=== PATIENT | male | born 1980 | race Two or more races ===

== ENCOUNTER 2024-08-06 17:14 | Emergency (ER) | payer MEDICAID, SELFPAY ==
[2024-08-06 17:41] VITALS: BP 165/95; PULSE 100; RESP 18; TEMP 37.2; O2SAT 95; BMI 27.0
--- NOTE | 2024-08-06 17:43 | XR_ITS ---
Examination: CT abdomen and pelvis without contrast. Coronal 3-D reconstructions. Sagittal 2-D reconstructions. Date and time of exam:August 06, 2024, [address] chest abdomen pelvis June 14, 2020 INDICATIONS: Epigastric pain nausea vomiting diarrhea beginning one week ago CTDI: vol (mGy): 7.40 DLP: (mGycm): 438 Technique: Axial images of the abdomen have been obtained, 3 mm slice thickness Intravenous contrast material has not been administered. Low dose protocols were performed. One or more of the following dose reduction techniques were used; automated exposure control, adjustment of the mA and/or KV according to patient size, use of iterative reconstruction technique. Findings: Severe diffuse fatty infiltration throughout the liver Mildly hyperdense gallbladder Spleen not enlarged No pancreatic or adrenal mass No renal or ureteral calculi, mild right perinephric stranding Aorta normal size Normal appendix No bowel obstruction No diverticulitis Normal seminal vesicles No prostatomegaly Prominent urinary bladder wall thickening up to 9 mm Advanced degenerative disc disease L5-S1 with 4 mm right paracentral disc bulge displacing the right S1 nerve root IMPRESSION: Severe diffuse fatty infiltration throughout the liver. Hyperdense gallbladder, recommend hepatobiliary sonography follow-up Mild right perinephric stranding, significant thickening of the urinary bladder wall, consider right urinary tract infection cystitis
--- NOTE | 2024-08-06 17:43 | PD.EDRME ---
Rapid Medical Screening Exam RME Arrival date/time: 08/06/24 17:14 43-year-old male with a history of alcoholism presents to the emergency room with a chief complaint of a decreased appetite, headache, fatigue x 3 days I have greeted and performed a focused initial assessment of this patient. A comprehensive ED assessment and evaluation of the patient, analysis of all test results, and completion of the medical decision making process will be conducted by additional ED providers. Chief Complaint: Nausea/Vomiting/Diarrhea Time Seen by Provider: 08/06/24 17:18 Vital signs: Vital Signs Temperature 99.0 F 08/06/24 17:41 Pulse Rate 100 08/06/24 17:41 Respiratory Rate 18 08/06/24 17:41 Blood Pressure 165/95 H 08/06/24 17:41 Pulse Oximetry (%) 95 08/06/24 17:41 Vital signs reviewed by provider: Yes
[2024-08-06 18:32] LABS: Basophils # (Auto) 0.1 Thou/mm3 (0.0-0.2); Basophils % (Auto) 3 % (0-2.5); Eosinophils # (Auto) 0.1 Thou/mm3 (0.0-0.5); Eosinophils % (Auto) 1 % (0-10); Hematocrit 38.6 % (41.0-53.0); Hemoglobin 13.8 g/dL (13.5-16.0); Immature Granulocytes % (Auto) 0 % (0-0); Immature Granulocytes Auto 0.01 Thou/mm3 (0.00-0.00); Lymphocytes # (Auto) 0.8 Thou/mm3 (1.0-4.8); Lymphocytes % (Auto) 19 % (10-50); Mean Corpuscular HGB Conc 35.8 g/dl (31.0-37.0); Mean Corpuscular Hemoglobin 29.3 pg (25.0-35.0); Mean Corpuscular Volume 82 fL (80-100); Monocytes # (Auto) 0.6 Thou/mm3 (0.0-0.8); Monocytes % (Auto) 15 % (0-12); Neutrophils # (Auto) 2.5 Thou/mm3 (1.8-7.7); Neutrophils % (Auto) 62 % (37-80); Nucleated Red Blood Cell % 0 /100 WBC (0); Platelet Count 126 Thou/mm3 (140-440); RDW Standard Deviation 40.1 fL (35.1-43.9); Red Blood Count 4.71 Miln/mm3 (4.50-5.90); White Blood Count 4.1 Thou/mm3 (3.8-10.6)
[2024-08-06 18:57] LABS: Collection Type, Urine Clean Catch; Squamous Epithelial Cell,Urine 0 /hpf (0-5)
[2024-08-06 18:58] LABS: Alanine Aminotransferase 164 U/L (10-49); Albumin, Serum 4.8 gm/dL (3.5-5.0); Albumin/Globulin Ratio 1.4 (1.2-2.2); Alcohol, Blood Medical 207.8 mg/dL (0-10.0); Alkaline Phosphatase 123 U/L (46-116); Anion Gap 14 (7-16); Aspartate Amino Transferase 253 U/L (0-34); BUN/Creatinine Ratio 6 Ratio (12-20); Bilirubin,Total 1.3 mg/dL (0.3-1.2); Blood Urea Nitrogen < 5 mg/dL (9-23); Calcium 10.2 mg/dL (8.3-10.6); Calcium (Corrected) 10.2 mg/dL (8.5-10.1); Carbon Dioxide 32.8 mMol/L (20.0-31.0); Chloride 77 mMol/L (98-107); Creatinine (Component) 0.9 mg/dL (0.6-1.3); Estimated Creatinine Clearance 104.7 mL/min (>60); Globulin 3.4 gm/dL (2.3-3.5); Glucose 95 mg/dL (74-106); Lipase 64 U/L (12-53); Osmolality,Calculated 246 (275-295); Potassium 3.2 mMol/L (3.4-5.1); Sodium 124 mMol/L (136-145); Total Protein 8.2 gm/dL (5.7-8.2); eGFR > 60 See Note
[2024-08-06 19:09] LABS: Bilirubin,Urine Negative (Negative); Blood,Urine Negative (Negative); Clarity,Urine Clear (Clear/Hazy); Color,Urine Yellow (Lt Yel-Yel); Glucose, Urine Negative (Negative); Hyaline Casts,Urine < 1 /hpf (0-1); Ketones,Urine 1+ (Negative); Leukocyte Esterase,Urine Negative (Negative); Nitrite,Urine Negative (Negative); PH,Urine 6.5 (5.0-7.0); Protein,Urine Trace (Neg - Trace); RBC,Urine 2 /hpf (0-3); Specific Gravity,Urine 1.016 (1.001-1.035); Urobilinogen,Urine Negative mg/dL (0.0-1.0); WBC,Urine 1 /hpf (0-5)
[2024-08-06 20:02] LABS: Amphetamine/Methamp Scrn,U Negative (Negative); Barbiturate Screen,Urine Negative (Negative); Benzodiazepines Screen,Urine Negative (Negative); Benzoylecgonine Screen, Ur Negative (Negative); Fentanyl Screen,Urine Negative (Negative); Opiate Screen,Urine Negative (Negative); THC Screen,Urine Positive (Negative)
[2024-08-06 20:56] VITALS: BP 149/98; PULSE 100; RESP 19; TEMP 37.2; O2SAT 97
--- NOTE | 2024-08-06 22:54 | EDNOTE_ITS ---
Nausea/Vomit./Diarrhea-RME/HPI General Chief complaint: Nausea/Vomiting/Diarrhea Stated complaint: UNABLE TO EAT, VOMITING, DIARRHEA, HEAD/NECK PAIN Time Seen by Provider: 08/06/24 17:18 Arrival date/time: 08/06/24 17:14 RME / HPI RME / HPI Narrative: 08/06/24 17:14 43-year-old male with a history of alcoholism presents to the emergency room with a chief complaint of a decreased appetite, headache, fatigue x 3 days I have greeted and performed a focused initial assessment of this patient. A comprehensive ED assessment and evaluation of the patient, analysis of all test results, and completion of the medical decision making process will be conducted by additional ED providers. This section includes all my notes and documentations, including HPI, PE, and ED course. Williams Badillo MD HPI: 43 y/o male with Hx of Alcoholism, marijuana use, Seizures, Asthma, Gastrointestinal Bleed, Esophageal Varices, and Ulcer presents to ED c/o nausea, vomiting, headache, abdominal pain, and anorexia x 6 days. No other complaints. ROS: All negative except as documented in HPI. Physical Exam: General: Alert and oriented. Eyes: Conjunctivae and lids clear. ENT: No nasal congestion. Neck: Supple. Heart: RRR. Lungs: No respiratory distress. Good air movement. No rhonchi, wheezing, rales. Abdomen: Soft with epigastric and RUQ tenderness. Normal bowel sounds. No distension. No rebound or guarding. Back: No CVA tenderness. Skin: Warm and dry. Neuro: Alert and oriented X 3. I reviewed all diagnostic test results. My interpretation of the EKG is sinus rhythm with no acute ST?T changes. My review of the US report is gallbladder sludge. My review of the Abdomen/Pelvis CT report is no acute findings. My review of the Head/Brain CT report is NAD. My review of the C-Spine CT report is no acute fracture. My review of the T-Spine CT report is no acute fracture. My review of the L-Spine CT report is no acute fracture. Blood tests and urine tests unremarkable except LFT elevation in serum alcohol 207. At this point, diagnoses include Alcohol Intoxication, Gall Bladder Sludge, Stomach Ulcer. Treatment here included Pepcid, IV fluid, thiamine, Protonix, Zofran, Toradol, Ativan, IV fluid, Potassium Chloride. Significant improvement noted. Recommended more outpatient care. Based on my best medical judgment, made decision no further evaluation or treatment indicated at this time. Patient understands and agrees to the discharge instructions customized and printed, see below. Discharge Instructions from Dr. Badillo: 1. After extensive evaluation, your diagnoses include alcohol intoxication and stomach ulcer and gallbladder sludge. See attached handouts. 2. You need gallbladder to digest fatty food. So avoid alcohol and all fatty and oily and greasy and buttery and dairy foods.? 3. Zofran for nausea/vomiting.? Clear liquid diet for 24 hours. Then advance diet as tolerated. 4. To heal your stomach ulcer, take omeprazole every morning and famotidine every night for a month. Avoid alcohol to prevent worsening. 5. Take multivitamin and folic acid 1 mg and thiamine 50 mg every day. 6.. See a private doctor on 08/08/2024 for recheck and further care. Ask to review all test results and official radiology reports, to make sure you receive all necessary follow-ups and monitoring. Ask for help seeing a general surgeon to discuss elective surgery of your gallbl adder. To make sure there is no serious intra-abdominal condition, ask for help with more investigation not available here in the ER. Such as EGD or scoping the stomach, colonoscopy or scoping the colon, and referral to see outside sales manager. Ask for help to quit alcohol. 7. Seek immediate medical care with intolerable pain, fever, or with any concerns. Williams Badillo MD Related Data Home Medications ?Medication ?Instructions ?Recorded ?Confirmed ferrous sulfate 325 mg (65 mg 1 tab PO QDAY 08/26/21 0 08/26/21 iron) tablet (FeroSul) pantoprazole 40 mg tablet,delayed 1 tab PO QDAY 08/26/21 release Previous Rx's ?Medication ?Instructions ?Recorded famotidine 40 mg tablet 40 mg PO .bedtime #30 tabs 0 08/07/24 omeprazole 40 mg capsule,delayed 40 mg PO QDAY #30 cap s 08/07/24 release ondansetron 4 mg disintegrating 4 mg PO TID PRN nausea and 08/07/24 tablet vomiting 30 days #10 tabs Allergies Allergy/AdvReac Type Severity Reaction Status Date / Time No Known Allergies Allergy Verified 08/06/24 17:19 Review of Systems Review of Systems Systems Reviewed: All systems reviewed, normal except as documented Past Medical History Past Medical History NEUROLOGIC: Positive Seizures RESPIRATORY: Positive Asthma GASTROINTESTINAL: Positive Gastrointestinal Disorders, Gastrointestinal Bleed, Esophageal Varices and Ulcer PSYCHO/SOCIAL: Positive Anxiety OTHER HISTORY: Positive Blood Transfusions and Blood Transfusion Reaction Social History SUBSTANCE USE: marijuana ALCOHOL: Current ALCOHOL FREQUENCY: 3 or More Drinks per Day ED Exam Narrative Physical exam: Refer to HPI above Course Quality Measures none Orders Category Date Time Status CT Screening NOW Care 08/07/24 00:40 Active EKG (ED ONLY) *Do not use* NOW Care 08/06/24 23:02 Completed Saline [Insert IV] NOW Care 08/06/24 22:[address] abdomen pelvis wo con Stat Exams 08/06/24 17:[address] cervical spine wo con Stat Exams 08/07/24 00:[address] chest abdomen pelvis w Stat Exams 08/07/24 00:[address] head/brain wo con Stat Exams 08/07/24 00:[address] lumbar spine wo con Stat Exams 08/07/24 00:[address] thoracic spine wo con Stat Exams 08/07/24 00:40 Taken EKG (ED Only) Stat Exams 08/06/24 23:02 Draft US gall bladder Stat Exams 08/06/24 23:02 Completed ABG [Arterial Blood Gas] Stat Lab 08/06/24 23:21 Completed Alcohol, Blood Medical Stat Lab 08/06/24 18:08 Completed Ammonia Stat Lab 08/06/24 23:20 Completed Amylase Stat Lab 08/06/24 23:20 Completed BMP [Basic Metabolic Panel] Stat Lab 08/07/24 01:39 Completed BNP [B-Type Natriuretic Peptide] Stat Lab 08/06/24 23:20 Completed Bilirubin,Direct Stat Lab 08/06/24 23:20 Completed CBC Stat Lab 08/06/24 18:08 Completed CBC Stat Lab 08/07/24 01:39 Completed CMP [Comprehensive Metabolic Panel] Stat Lab 08/06/24 18:08 Completed Drug Screen,Urine Stat Lab 08/06/24 18:46 Completed Free T4 (Free Thyroxine) Stat Lab 08/06/24 23:20 Completed Lipase Stat Lab 08/06/24 18:08 Completed Magnesium Stat Lab 08/06/24 23:20 Completed Occult Blood, Gastric (LAB) Stat Lab 08/07/24 00:25 Completed PT [Prothrombin Time with INR] Stat Lab 08/06/24 23:20 Completed PTT [Partial Thromboplastin Time] Stat Lab 08/06/24 23:20 Completed TSH [Thyroid Stimulating Hormone] Stat Lab 08/06/24 23:20 Completed Troponin I Stat Lab 08/06/24 23:20 Completed UA [Urinalysis] Stat Lab 08/06/24 18:46 Completed Urine Culture Stat Lab 08/06/24 18:46 Received Famotidine Inj [Pepcid Inj] Med 08/06/24 22:56 Discontinued 20 mg IVP X1 ONE KCL 10% Liq UDC 15 ML Med 08/07/24 00:39 Discontinued 40 meq PO X1 ONE Ketorolac Inj [Toradol Inj] Med 08/06/24 22:55 Discontinued 30 mg IVP X1 ONE LORazepam [Ativan Inj] Med 08/06/24 22:55 Discontinued 2 mg IVP X1 ONE Ondansetron Inj [Zofran Inj] Med 08/06/24 22:55 Discontinued 4 mg IVP X1 ONE Pantoprazole Inj [Protonix Inj] Med 08/06/24 22:56 Discontinued 40 mg IVP X1 ONE Ringers Lactated 1000 ml [Lactated Ringers] 1,000 ml Med 08/07/24 00:41 Discontinued IV 1,000 mls/hr Sodium Chloride 0.9% 1000 ml [Ns] 1,000 ml Med 08/06/24 22:55 Discontinued IV 999 mls/hr Sodium Chloride 0.9% 1000 ml [Ns] 1,000 ml Med 08/06/24 22:56 Discontinued IV 999 mls/hr Thiamine Inj [Vitamin B-1 Inj] 100 mg Med 08/06/24 22:55 Discontinued Sodium Chloride 0.9% [Ns] 100 ml IV X1 Vital Signs Vital signs: Vital Signs Temperature 99.0 F 08/06/24 17:41 Pulse Rate 100 08/06/24 17:41 Respiratory Rate 18 08/06/24 17:41 Blood Pressure 165/95 H 08/06/24 17:41 Pulse Oximetry (%) 95 08/06/24 17:41 Nausea/Vomiting/Diarrhea MDM Narrative MDM Narrative:: Scribe Attestation: I, Ade Wyatt, am scribing for and in the presence of Dr. Badillo. Provider Notation: Although this document has been carefully reviewed, there may still be some phonetic and other typographical errors.? These errors are purely grammatical due to imperfections in the software program and should not be construed in any way to? compromise the substance of the patient's medical care during this visit. 43 y/o male with Hx of Alcoholism, marijuana use, Seizures, Asthma, Gastrointestinal Bleed, Esophageal Varices, and Ulcer presents to ED c/o nausea, vomiting, headache, and anorexia x 6 days. Several years ago patient went 7 months with consuming alcohol. No other complaints. Patient data External records reviewed:: [facility] previous records (Reviewed prior ED records from 04/26/23. Patient was seen for Ankle sprain.) Clinical information provided by:: patient Social determinants that could affect healthcare access:: alcohol use (& Marijuana) Patient has the following chronic illnesses:: Seizures, Asthma, Gastrointestinal Bleed, Esophageal Varices, Ulcer, Anxiety, Alcoholism How is presenting disease/condition affected by chronic disease/condition?: exacerbated by Evaluation data The following diagnostics were reviewed and interpreted by me:: lab results, radiology exam(s) and EKG tracing(s) (My interpretation of the EKG is: Sinus rhythm (108 bpm) with nonspecific ST-T changes. Williams Badillo MD) Lab and/or radiology exams considered but not ordered:: None Interpretation Summary: I reviewed all diagnostic test results. My interpretation of the EKG is sinus rhythm with no acute ST?T changes. My review of the US report is gallbladder sludge. My review of the Abdomen/Pelvis CT report is no acute findings. My review of the Head/Brain CT report is NAD. My review of the C-Spine CT report is no acute fracture. My review of the T-Spine CT report is no acute fracture. My review of the L-Spine CT report is no acute fracture. Blood tests and urine tests unremarkable except LFT elevation in serum alcohol 207. Medications / Prescriptions Medications / Prescriptions considered but not ordered:: None Medication administrations:: Medication Administration History Discontinued Medications Famotidine (Famotidine Inj 10 Mg/Ml Vial 2 Ml) 20 mg IVP X1 ONE Stop: 08/06/24 22:57 Last Admin: 08/06/24 23:31 Dose: 20 mg Documented By: WO Sodium Chloride (Ns) 1,000 mls @ 999 mls/hr IV .Q1H1M ONE Stop: 08/06/24 23:55 Last Infusion: 08/07/24 00:32 Dose: Infused Documented By: Admin: 08/06/24 23:24 Dose: 999 mls/hr Documented By: ANNELIESE Thiamine HCl 100 mg/ Sodium (Chloride) 101 mls @ 202 mls/hr IV X1 ONE Stop: 08/06/24 23:24 Last Infusion: 08/07/24 00:11 Dose: Infused Documented By: Admin: 08/06/24 23:41 Dose: 202 mls/hr Documented By: WO Sodium Chloride (Ns) 1,000 mls @ 999 mls/hr IV .Q1H1M ONE Stop: 08/06/24 23:56 Last Admin: 08/06/24 23:27 Dose: Not Given Documented By: ANNELIESE Non-Admin Reason: Discontinued Lactated Ringer's (Lactated Ringers) 1,000 mls @ 1,000 mls/hr IV .Q1H ONE Stop: 08/07/24 01:40 Last Infusion: 08/07/24 01:49 Dose: Infused Documented By: Admin: 08/07/24 00:50 Dose: 1,000 mls/hr Documented By: GATITO Ketorolac Tromethamine (Ketorolac Inj 30 Mg/Ml Vial) 30 mg IVP X1 ONE Stop: 08/06/24 22:56 Last Admin: 08/06/24 23:34 Dose: 30 mg Documented By: ANNELIESE Lorazepam (Lorazepam 2 Mg/Ml Vial) 2 mg IVP X1 ONE Stop: 08/06/24 22:56 Last Admin: 08/06/24 23:33 Dose: 2 mg Documented By: ANNELIESE Ondansetron HCl (Ondansetron Inj 2 Mg/Ml Inj 2 Ml) 4 mg IVP X1 ONE; Protocol Stop: 08/06/24 22:56 Last Admin: 08/06/24 23:32 Dose: 4 mg Documented By: ANNELIESE Pantoprazole Sodium (Pantoprazole Inj 40 Mg Vial) 40 mg IVP X1 ONE Stop: 08/06/24 22:57 Last Admin: 08/06/24 23:30 Dose: 40 mg Documented By: ANNELIESE Potassium Chloride (Potassium Chloride 10% 20 Meq/15 Ml Udc) 40 meq PO X1 ONE Stop: 08/07/24 00:40 Last Admin: 08/07/24 00:59 Dose: 40 meq Documented By: CVL Treatment here included Pepcid, IV fluid, thiamine, Protonix, Zofran, Toradol, Ativan, IV fluid, Potassium Chloride. Consultations Consultation(s) initiated? (list below): No Diagnosis Nausea Differential Diagnosis: traveler's diarrhea, food poisoning, gastroenteritis, drug-induced nausea and vomiting, dehydration and other (GERD, gastritis, PUD) Most likely diagnosis given after review of the tests above:: Alcohol intoxication, Gall Bladder Sludge, Stomach Ulcer Admission Indicated Admission indicated?: not indicated Explain why admission is indicated or not indicated:: With significant improvement, there was no indication for admission. Admission Request Was there a request for admission?: No Disposition Plan Disposition Plan: Discharge Discharge Attestation Discharge Attestation: The patient and all family members were given an opportunity to ask questions and understood the discharge instructions. Discharge instructions specifically effects, indications for sooner follow up or return to the emergency department, and the expected course of current diagnosis. Patient condition: Stable Discharge Plan Plan Patient Disposition: HOME (Self Care) Prescriptions/Referrals Prescriptions/Med Rec: New famotidine 40 mg tablet 40 mg PO .bedtime Qty: 30 0RF omeprazole 40 mg capsule,delayed release(DR/EC) 40 mg PO QDAY Qty: 30 0RF ondansetron 4 mg tablet,disintegrating 4 mg PO TID PRN (Reason: nausea and vomiting) 30 Days Qty: 10 0RF No Action pantoprazole 40 mg tablet,delayed release (DR/EC) 1 tab PO QDAY Patient Comments: TAKE 1 TABLET BY MOUTH EVERY DAY ferrous sulfate [FeroSul] 325 mg (65 mg iron) tablet 1 tab PO QDAY Patient Comments: TAKE 1 TABLET BY MOUTH DAILY. MAY. TAKE WITH FOOD TO MINIMIZE ABDOMINAL DISCOMFORT Referrals: No Primary/Family,Physician [Primary Care Provider] - In 1 week Problem List Clinical Impression: Alcohol intoxication, Gallbladder sludge, Stomach ulcer Patient/Caregiver Discharge Instructions Discharge Activity: activity as tolerated Education Materials: ED Alcohol Intoxication, ED Gallstones with Biliary Colic, ED PEPTIC ULCER vs GASTRITIS Additional Instructions: Discharge Instructions from Dr. Badillo: 1. After extensive evaluation, your diagnoses include alcohol intoxication and stomach ulcer and gallbladder sludge. See attached handouts. 2. You need gallbladder to digest fatty food. So avoid alcohol and all fatty and oily and greasy and buttery and dairy foods.? 3. Zofran for nausea/vomiting.? Clear liquid diet for 24 hours. Then advance diet as tolerated. 4. To heal your stomach ulcer, take omeprazole every morning and famotidine every night for a month. Avoid alcohol to prevent worsening. 5. Take multivitamin and folic acid 1 mg and thiamine 50 mg every day. 6.. See a private doctor on 08/08/2024 for recheck and further care. Ask to review all test results and official radiology reports, to make sure you receive all necessary follow-ups and monitoring. Ask for help seeing a general surgeon to discuss elective surgery of your gallbladder. To make sure there is no serious intra-abdominal condition, ask for help with more investigation not available here in the ER. Such as EGD or scoping the stomach, colonoscopy or scoping the colon, and referral to see outside sales manager. Ask for help to quit alcohol. 7. Seek immediate medical care with intolerable pain, fever, or with any concerns. Instrucciones de jose del Dr. Badillo: 1. Tras lili evaluaci?n exhaustiva, amaya diagn?sticos incluyen intoxicaci?n et?lica, ?lcera estomacal y lodo biliar. Consulte los folletos adjuntos. 2. Necesita la ves?cula biliar para digerir los alimentos grasos. Por lo tanto, evite el alcohol y todos los alimentos grasosos, aceitosos, mantecosos y l?cteos. 3. Zofran para las n?useas y los v?mitos. Dieta l?quida raj 24 horas. Luego, aumente la dieta seg?n la tolerancia. 4. Para curar la ?lcera estomacal, tome omeprazol todas las ma?anas y famotidina todas las noches raj un mes. Evite el alcohol para prevenir el empeoramiento. 5. [place] un multivitam?madhu y 1 mg de ?cido f?becca y 50 mg de tiamina todos los d?as. 6. Consulte con un m?dico particular el 08/08/2024 para lili revisi?n y atenci?n adicional. Solicite la revisi?n de todos los resultados de las pruebas y los informes radiol?gicos oficiales para asegurarse de recibir todos los controles y monitoreos necesarios. Solicite ayuda para consultar con un cirujano general y hablar sobre lili cirug?a electiva de ves?cula biliar. Para asegurarse de que no haya lili afecci?n intraabdominal grave, solicite ayuda con estudios adicionales que no est?n disponibles en urgencias, fransisco lili endoscopia estomacal (EGD) o lili colonoscopia, lili colonoscopia o lili colonoscopia, y lili derivaci?n a un gastroenter?logo. Solicite ayuda para dejar el alcohol. 7. Busque atenci?n m?dica inmediata si presenta dolor insoportable, fiebre o cualquier inquietud. Print Language: Syriac Stand Alone Forms: Amanda Award Info., Patient Portal Info Letter
--- NOTE | 2024-08-06 23:02 | XR_ITS ---
Examination: Abdomen sonogram, Limited Date and time of exam: July 29, 2024 1122 hours INDICATIONS: Right upper abdominal pain today, hyperdense gallbladder on CT examination today Technique: Real-time [place] scale transabdominal sonographic images of the upper abdomen obtained. Findings: Gallbladder sludge Gallbladder wall 0.3 cm Common bile duct 0.4 cm Pancreatic head 3.4 cm Liver 16.8 cm fatty infiltration Normal hepatopedal portal venous flow Patent IVC IMPRESSION: Gallbladder sludge, negative for cholelithiasis, negative for cholecystitis Mild hepatomegaly fatty liver
--- NOTE | 2024-08-06 23:02 | EKG_ITS ---
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
[2024-08-06] MEDS: SODIUM CHLORIDE 0.9% 1000 ML 1,000 ML 999 ML IV (23:24)
[2024-08-06] MEDS: PANTOPRAZOLE INJ 40 MG VIAL IVP (23:30)
[2024-08-06] MEDS: FAMOTIDINE INJ 10 MG/ML VIAL 2 ML 20 MG IVP (23:31)
[2024-08-06] MEDS: ONDANSETRON INJ 2 MG/ML INJ 2 ML 4 MG IVP (23:32)
[2024-08-06] MEDS: LORazepam 2 MG/ML VIAL IVP (23:33)
[2024-08-06 23:34] VITALS: TEMP 37.2
[2024-08-06] MEDS: KETOROLAC INJ 30 MG/ML VIAL IVP (23:34)
[2024-08-06 23:36] LABS: Allen Test Performed/OK; Base Excess 10 (-3-3); HCO3 34 mEq/L (20-26); Inspired Oxygen, FIO2 21 %; O2 Saturation 96 % (91-98); PCO2 44 mmHg (32.0-48.0); PO2 77 mmHg (83-108); Puncture Site Right Radial
[2024-08-06] MEDS: THIAMINE INJ 100 MG in SODIUM CHLORIDE 0.9% 100 ML 202 MG IV (23:41)
[2024-08-06 23:53] VITALS: BP 156/99; PULSE 81; RESP 12; TEMP 36.7; O2SAT 93
[2024-08-07 00:02] LABS: B-Type Natriuretic Peptide < 20 pg/mL (0-100)
[2024-08-07 00:03] LABS: Ammonia 17 uMol/L (11-32)
[2024-08-07 00:07] LABS: Amylase 78 U/L (30-118); Bilirubin,Direct 0.6 mg/dL (0.0-0.3); Free T4 (Free Thyroxine) 1.42 ng/dL (0.89-1.76); Magnesium 1.9 mg/dL (1.6-2.6); Thyroid Stimulating Hormone 3.15 uIU/mL (0.55-4.78); Troponin I < 0.002 ng/mL (0.0-0.045)
[2024-08-07 00:20] LABS: Partial Thromboplastin Time 26.4 Seconds (22.0-36.0); Prothrombin Time 11.2 Seconds (9.0-12.2)
[2024-08-07 00:31] LABS: OBG Card Lot # 20632; OBG Developer Expiration Date 75023G; OBG Performed By Orpiw2; OBG QC OK? Yes
[2024-08-07 00:37] LABS: Occult Blood, Gastric Positive (Negative)
--- NOTE | 2024-08-07 00:40 | XR_ITS ---
Examination: CT chest with intravenous contrast CT abdomen with intravenous contrast CT pelvis with intravenous contrast 2-D coronal and sagittal reconstructions Time of exam: August 07, 2024 0226 hours INDICATIONS: Patient fell today with injury to the chest and abdomen, chest pain abdomen pain CTDI: vol (mGy) : 8.34 DLP: (mGycm): 618 Technique: Multiple axial images of the chest, abdomen and pelvis with intravenous contrast, 3.0 mm slice thickness. Images obtained post intravenous injection Isovue 370 60 cc. 2-D sagittal and coronal reconstructions. Low dose protocols were performed. One or more of the following dose reduction techniques were used; automated exposure control, adjustment of the mA and/or KV according to patient size, use of iterative reconstruction technique. Findings: Significant thyromegaly Thoracic aorta pulmonary arteries appear intact on this noncontrast study No hemopericardium No pneumothorax pulmonary contusion or hemothorax Sternal segments thoracic lumbar vertebral bodies intact Multiple old right-sided rib fractures No acute rib fractures Severe diffuse fatty infiltration throughout the liver, no liver splenic or renal laceration Abdominal aorta intact No free blood in the abdomen or pelvis Negative for pneumoperitoneum Minimal urinary bladder wall thickening Hips bones of the pelvis intact IMPRESSION: Significant thyromegaly Negative for hemopericardium pneumothorax pulmonary contusion or hemothorax Severe diffuse fatty infiltration throughout the liver. No abdominal parenchymal laceration. Abdominal aorta intact No free body in the abdomen or pelvis No acute osseous fractures
--- NOTE | 2024-08-07 00:40 | XR_ITS ---
Examination: CT brain head without contrast. 2-D sagittal coronal reconstructions Date and time of exam:August 07, 2024, 0222 hours INDICATIONS: Patient fell today with injury to head, head pain CTDI: vol (mGy):54.9 DLP: (mGycm):1052 Technique: Multiple CT axial sections of the brain have been obtained, 5 mm slice thickness. Contrast has not been administered. 2-D sagittal, coronal reconstructions have been obtained Low dose protocols were performed. One or more of the following dose reduction techniques were used; automated exposure control, adjustment of the mA and/or KV according to patient size, use of iterative reconstruction technique. Findings: No significant ventricular enlargement. Intra-axial or extra-axial hemorrhage density is not seen. No mass effect or midline shift Basal cisterns are not remarkable. Fourth ventricle is midline. Cranial vault intact. Impression: Negative for acute hemorrhage, mass effect or midline shift
--- NOTE | 2024-08-07 00:40 | XR_ITS ---
Examination: CT lumbar spine, without contrast. 2-D sagittal reconstructions. 2-D coronal reconstructions. 3-D reconstructions. Date and time of exam:August 07, 2024 0238 hours INDICATIONS: Patient fell today with injury to lower back, lower back pain CTDI: vol (mGy):26.2 DLP: (mGycm):776 Technique: Multiple 1.25 mm axial sections of the lumbar spine without intravenous contrast have been obtained. 2-D sagittal and coronal reconstructions have been obtained. 3-D reconstructions have been obtained. Low dose protocols were performed. One or more of the following dose reduction techniques were used; automated exposure control, adjustment of the mA and/or KV according to patient size, use of iterative reconstruction technique. Findings: Adequate alignment lumbar vertebral bodies Iyok-cy-wyrsotou diffuse lumbar disc narrowing most prominent L5-S1 No acute lumbar fracture L5-S1 6 mm central lumbar disc bulge contiguous with the right and left S1 nerve roots L4-L5 5 mm central lumbar disc bulge extending to the right intervertebral foramen with mild right L4 ganglionic impression IMPRESSION: No acute lumbar fracture
--- NOTE | 2024-08-07 00:40 | XR_ITS ---
Examination: CT thoracic spine, without contrast. 2-D sagittal reconstructions. 2-D coronal reconstructions. 3-D reconstructions. Date and time of exam:August 07, 2024 at 0238 hours INDICATIONS: Patient fell today with injury to the upper back, upper back pain CTDI: vol (mGy):27.9 DLP: (mGycm):1003 Technique: Multiple 1.25 mm axial sections of the thoracic spine without intravenous contrast have been obtained. 2-D sagittal and coronal reconstructions have been obtained. 3-D reconstructions have been obtained. Low dose protocols were performed. One or more of the following dose reduction techniques were used; automated exposure control, adjustment of the mA and/or KV according to patient size, use of iterative reconstruction technique. Findings: Adequate alignment thoracic vertebral bodies Prominent osteopenia Chronic deformities superior endplates T5, T7, T11, T12 No acute fractures IMPRESSION: No acute thoracic fractures
--- NOTE | 2024-08-07 00:40 | XR_ITS ---
Examination: CT cervical spine without contrast 2-D sagittal reconstructions 2-D coronal reconstructions 3-D reconstructions. Exam date and time:August 07, 2024, 0222 hours INDICATIONS: Patient fell today with injury to the neck, neck pain CTDI:vol (mGy) 10.2 DLP: (mGycm) 230 Technique: Multiple 2 mm axial sections of the cervical spine have been obtained. The coronal and sagittal reconstructions have been obtained. 3-D reconstructions have been obtained. Low dose protocols were performed. One or more of the following dose reduction techniques were used; automated exposure control, adjustment of the mA and/or KV according to patient size, use of iterative reconstruction technique. Findings: Axial sections demonstrate intact base of the skull. C1 exhibit satisfactory relationship to the odontoid. No acute cervical vertebral body fracture seen. Alignment posterior spinous processes satisfactory. Impression: No acute cervical fracture.
[2024-08-07] MEDS: RINGERS LACTATED 1000 ML 1,000 ML IV (00:50)
[2024-08-07] MEDS: POTASSIUM CHLORIDE 10% 20 MEQ/15 ML UDC 40 MEQ PO (00:59)
[2024-08-07 01:53] LABS: Basophils # (Auto) 0.1 Thou/mm3 (0.0-0.2); Basophils % (Auto) 2 % (0-2.5); Eosinophils % (Auto) 2 % (0-10); Hemoglobin 12.8 g/dL (13.5-16.0); Immature Granulocytes % (Auto) 0 % (0-0); Immature Granulocytes Auto 0.01 Thou/mm3 (0.00-0.00); Lymphocytes # (Auto) 0.5 Thou/mm3 (1.0-4.8); Lymphocytes % (Auto) 20 % (10-50); Mean Corpuscular HGB Conc 34.6 g/dl (31.0-37.0); Mean Corpuscular Hemoglobin 29.5 pg (25.0-35.0); Mean Corpuscular Volume 85 fL (80-100); Monocytes # (Auto) 0.4 Thou/mm3 (0.0-0.8); Monocytes % (Auto) 15 % (0-12); Neutrophils # (Auto) 1.6 Thou/mm3 (1.8-7.7); Neutrophils % (Auto) 61 % (37-80); Nucleated Red Blood Cell % 0 /100 WBC (0); Platelet Count 98 Thou/mm3 (140-440); RDW Standard Deviation 42.3 fL (35.1-43.9); Red Blood Count 4.34 Miln/mm3 (4.50-5.90)
[2024-08-07 01:57] LABS: White Blood Count 2.6 Thou/mm3 (3.8-10.6)
[2024-08-07 02:12] LABS: Anion Gap 14 (7-16); BUN/Creatinine Ratio 7 Ratio (12-20); Blood Urea Nitrogen 6 mg/dL (9-23); Calcium 8.3 mg/dL (8.3-10.6); Carbon Dioxide 32.4 mMol/L (20.0-31.0); Chloride 85 mMol/L (98-107); Creatinine (Component) 0.9 mg/dL (0.6-1.3); Estimated Creatinine Clearance 104.7 mL/min (>60); Glucose 85 mg/dL (74-106); Osmolality,Calculated 259 (275-295); Potassium 4.1 mMol/L (3.4-5.1); Sodium 131 mMol/L (136-145); eGFR > 60 See Note
[2024-08-07 02:51] VITALS: BP 175/94; PULSE 87; RESP 19; O2SAT 95
--- NOTE | 2024-08-07 03:07 | PRELIM_ITS ---
CT scan of the head without intravenous contrast (axial sections with sagittal and coronal reformats). August 07, 2024 0222 hours Clinical History: Fall head injury Comparison: None currently available for review Findings: There is mild involutional atrophy of the cerebral hemispheres and cerebellum. There is no intracranial hemorrhage, extra-axial collection, mass, mass-effect or midline shift. There is good montana-white differentiation. There is no CT evidence of acute large vascular territorial infarct. Ventricles are not enlarged or effaced. There is mild paranasal sinus mucosal thickening. The tympanomastoid cavities are clear. The bony calvarium is intact. Impression: No intracranial hemorrhage, mass-effect or midline shift. No CT evidence of acute large vascular territorial infarct. Report Electronically Signed By: Nate Batista 08/07/2024 3:06:46 AM [EST]
--- NOTE | 2024-08-07 03:51 | PRELIM_ITS ---
CT scan of the lumbar spine without intravenous contrast (axial sections with sagittal and coronal reformats) August 07, 2024 0238 hours Clinical History: Fall. Comparison: No prior study is available for comparison. Radiation Dose: Total exam DLP 1786 mGy/cm. Findings: There is no fracture or traumatic subluxation. There are disc bulges at the L4- L5 and L5-S1 levels causing mild spinal canal stenosis and mild bilateral neural foraminal stenosis. Degenerative changes are noted in the form of multilevel marginal osteophytes, decreased disc spaces and facet arthropathy. Pars interarticularis defects are noted at L4 bilaterally. The soft tissues are unremarkable. Impression: No evidence of fracture, subluxation or significant soft tissue injury. Disc bulges at the L4-L5 and L5-S1 levels causing mild spinal canal stenosis and mild bilateral neural foraminal stenosis. Report Electronically Signed By: Fabiano Krishna 08/07/2024 3:51:08 AM [EST]
--- NOTE | 2024-08-07 03:53 | PRELIM_ITS ---
CT scan of the thoracic spine without intravenous contrast (axial sections with sagittal and coronal reformats) August 07, 2024 0238 hours Clinical History: Fall. Comparison: No prior study is available for comparison. Radiation Dose: Total exam DLP 1786 mGy/cm. Findings: There is no fracture or traumatic subluxation. Mild degenerative changes are identified in the spine. Schmorl's nodes are seen along the superior endplate of T5, T7, T11 and T12 vertebrae. There is no pre or paravertebral soft tissue abnormality. Impression: No fracture or traumatic subluxation. Degenerative changes as described above. Report Electronically Signed By: Fabiano Krishna 08/07/2024 3:52:31 AM [EST]
--- NOTE | 2024-08-07 04:05 | PRELIM_ITS ---
CT scan of the chest, abdomen and pelvis with intravenous contrast (axial sections with sagittal and coronal reformats) August 07, 2024 0226 hours Clinical History: Trauma. Comparison: Reference is made to the prior report dated June 14, 2020. Radiation Dose: Total exam DLP 1235 mGy/cm. Findings: Bibasilar dependent atelectasis is present. There is no pleural effusion or pneumothorax. There is no mediastinal collection or aortic injury. There is no pericardial effusion. Fatty infiltration of the liver is noted. Nonspecific perinephric fat stranding is noted bilaterally. The gallbladder, spleen, pancreas, adrenals are unremarkable. The bowel is unremarkable. The urinary bladder is incompletely distended at the time of the examination and appears mildly thick walled. There is no free fluid or free air. No evidence of acute fracture is identified. Degenerative changes are identified in the spine. There are chronic right 4th, 5th, 6th and 9th rib fractures. Impression: No visceral or acute bony injury to the chest, abdomen or pelvis. Other findings as described above. Report Electronically Signed By: Fabiano Krishna 08/07/2024 4:05:24 AM [EST]
--- NOTE | 2024-08-07 04:08 | PRELIM_ITS ---
CT scan of the cervical spine without intravenous contrast (axial sections with sagittal and coronal reformats). August 07, 2024 0222 hours Clinical history: Trauma. Comparison: Reference is made to the prior report dated 06/14/2020. Radiation Dose: Total exam DLP 1295 mGy/cm. Findings: There is no fracture or subluxation. There is straightening of the cervical lordosis, which may be due to muscle spasm or positioning. Degenerative changes are identified in the spine. The prevertebral soft tissues are unremarkable. Both lobes of thyroid are enlarged with calcified nodule in the left lobe of the thyroid, measuring 2 mm. Impression: No evidence of fracture or traumatic subluxation. Degenerative changes as described. Report Electronically Signed By: Fabiano Krishna 08/07/2024 4:07:17 AM [EST]
[2024-08-07 04:39] VITALS: BP 162/107; PULSE 92; RESP 17; O2SAT 95
== END 2024-08-07 04:41 | disposition home or self-care (01) ==
PROVIDERS: Nurse Practitioner Family; Emergency Provider Emergency Medicine
DX: F10.229 Alcohol dependence with intoxication, unspecified (principal); K82.8 Other specified diseases of gallbladder; K25.9 Gastric ulcer, unspecified as acute or chronic, without hemorrhage or perforation; J45.909 Unspecified asthma, uncomplicated; Y90.9 Presence of alcohol in blood, level not specified
CPT/HCPCS: 36415; 36600; 70450; 71260; 72125; 72128; 72131; 74176; 74177; 76705; 80048; 80053; 80307; 80320; 81001; 82140; 82150; 82248; 82271; 82803; 83690; 83735; 83880; 84439; 84443; 84484; 85025; 85610; 85730; 87086; 93005; 96361; 96365; 96375; 99285; A4649; J1885; J2060; J2405; J2470; J3411; J3490; J7030; J7050; J7120; Q9967; A9270; G0480

== ENCOUNTER 2024-09-08 10:00 | Emergency (ER) | payer MEDICAID, SELFPAY ==
[2024-09-08] VITALS (13 sets, daily range): BP systolic 115–162; BP diastolic 73–107; PULSE 65–111; RESP 1–18; TEMP 36.8–37.1; O2SAT 88–100
--- NOTE | 2024-09-08 10:40 | PD.EDRME ---
Rapid Medical Screening Exam RME Arrival date/time: 09/08/24 10:00 Chief Complaint: Seizure Vital signs: Vital Signs Temperature 98.8 F 09/08/24 10:22 Pulse Rate 111 H 09/08/24 10:22 Respiratory Rate 18 09/08/24 10:22 Blood Pressure 154/104 H 09/08/24 10:22 Pulse Oximetry (%) 95 09/08/24 10:22 Oxygen Delivery Method Room Air 09/08/24 10:22 RME Narrative: 43-year-old male presents emergency department with complaint of seizure. Patient has a history of alcohol abuse and states that he has had about 12 cans of beer in the last hour patient says he drank 6 beers before and 6 beers while at work he states he works in the [employer]. Patient was brought here by colleague after seizure-like activity at work. He is unsure of head trauma. Patient appears under the influence of alcohol during my RME. No visible traumatic injury noted.
--- NOTE | 2024-09-08 10:42 | XR_ITS ---
Examination: CT brain head without contrast. 2-D sagittal coronal reconstructions Date and time of exam:September 08, 2024 1048 hours INDICATIONS: Seizure this morning CTDI: vol (mGy):53.4 DLP: (mGycm):1077 Technique: Multiple CT axial sections of the brain have been obtained, 5 mm slice thickness. Contrast has not been administered. 2-D sagittal, coronal reconstructions have been obtained Low dose protocols were performed. One or more of the following dose reduction techniques were used; automated exposure control, adjustment of the mA and/or KV according to patient size, use of iterative reconstruction technique. Findings: No significant ventricular enlargement. Intra-axial or extra-axial hemorrhage density is not seen. No mass effect or midline shift Basal cisterns are not remarkable. Fourth ventricle is midline. Cranial vault intact. Significant ethmoid sinusitis Impression: Negative for acute hemorrhage, mass effect or midline shift Consider elective brain MRI follow-up, pre and postcontrast, seizure protocol
[2024-09-08 11:07] LABS: Basophils # (Auto) 0.1 Thou/mm3 (0.0-0.2); Basophils % (Auto) 3 % (0-2.5); Eosinophils # (Auto) 0.3 Thou/mm3 (0.0-0.5); Eosinophils % (Auto) 9 % (0-10); Hemoglobin 12.8 g/dL (13.5-16.0); Immature Granulocytes % (Auto) 0 % (0-0); Lymphocytes # (Auto) 0.9 Thou/mm3 (1.0-4.8); Lymphocytes % (Auto) 24 % (10-50); Mean Corpuscular HGB Conc 33.7 g/dl (31.0-37.0); Mean Corpuscular Hemoglobin 29.6 pg (25.0-35.0); Mean Corpuscular Volume 88 fL (80-100); Monocytes # (Auto) 0.3 Thou/mm3 (0.0-0.8); Monocytes % (Auto) 9 % (0-12); Neutrophils # (Auto) 1.9 Thou/mm3 (1.8-7.7); Neutrophils % (Auto) 54 % (37-80); Nucleated Red Blood Cell % 0 /100 WBC (0); Platelet Count 178 Thou/mm3 (140-440); RDW Standard Deviation 48.1 fL (35.1-43.9); Red Blood Count 4.32 Miln/mm3 (4.50-5.90); White Blood Count 3.6 Thou/mm3 (3.8-10.6)
[2024-09-08 11:43] LABS: Alanine Aminotransferase 87 U/L (10-49); Albumin, Serum 4.5 gm/dL (3.5-5.0); Albumin/Globulin Ratio 1.5 (1.2-2.2); Alkaline Phosphatase 100 U/L (46-116); Anion Gap 6 (7-16); Aspartate Amino Transferase 120 U/L (0-34); BUN/Creatinine Ratio 7 Ratio (12-20); Bilirubin,Total 0.4 mg/dL (0.3-1.2); Blood Urea Nitrogen < 5 mg/dL (9-23); Calcium 8.7 mg/dL (8.3-10.6); Calcium (Corrected) 8.7 mg/dL (8.5-10.1); Carbon Dioxide 26.9 mMol/L (20.0-31.0); Chloride 106 mMol/L (98-107); Creatinine (Component) 0.7 mg/dL (0.6-1.3); Globulin 3.1 gm/dL (2.3-3.5); Glucose 138 mg/dL (74-106); Lipase 73 U/L (12-53); Osmolality,Calculated 276 (275-295); Sodium 139 mMol/L (136-145); Total Protein 7.6 gm/dL (5.7-8.2); eGFR > 60 See Note
[2024-09-08 12:00] LABS: Alcohol, Blood Medical 448.6 mg/dL (0-10.0)
[2024-09-08] MEDS: ONDANSETRON ODT 4 MG TABRAP PO (12:13)
[2024-09-08] MEDS: FOLIC ACID 1 MG TABLET PO (12:13)
[2024-09-08] MEDS: SODIUM CHLORIDE 0.9% 1000 ML 1,000 ML 999 ML IV (12:14)
[2024-09-08 12:49] LABS: Collection Type, Urine Voided; RBC,Urine 0 /hpf (0-3); Squamous Epithelial Cell,Urine 0 /hpf (0-5); WBC,Urine 0 /hpf (0-5)
[2024-09-08 13:09] LABS: Bilirubin,Urine Negative (Negative); Blood,Urine Negative (Negative); Clarity,Urine Clear (Clear/Hazy); Color,Urine Colorless (Lt Yel-Yel); Glucose, Urine Negative (Negative); Ketones,Urine Negative (Negative); Leukocyte Esterase,Urine Negative (Negative); Nitrite,Urine Negative (Negative); PH,Urine 6.5 (5.0-7.0); Protein,Urine Negative (Neg - Trace); Specific Gravity,Urine 1.004 (1.001-1.035); Urobilinogen,Urine Negative mg/dL (0.0-1.0)
--- NOTE | 2024-09-08 13:54 | EDNOTE_ITS ---
ED Seizures RME/HPI General Chief Complaint: Seizure Stated Complaint: Seizure at 8am, in withdrawl Arrival date/time: 09/08/24 10:00 Limitations: no limitations RME / HPI RME / HPI Narrative: 43-year-old male presents emergency department with complaint of seizure. Patient has a history of alcohol abuse and states that he has had about 12 cans of beer in the last hour patient says he drank 6 beers before and 6 beers while at work he states he works in the [employer]. Patient was brought here by colleague after seizure-like activity at work. He is unsure of head trauma. Patient appears under the influence of alcohol during my RME. No visible traumatic injury noted. DR. EVANS MAIN ED EVALUATION: 43 year old male with history of alcohol abuse presents to the ED for evaluation after reported seizure today. States the seizure was not witnessed and not sure what had occurred or duration of seizure. While in the ED patient reports feeling dizzy. Denies headache, fevers, abdominal pain, n/v, or other associated symptoms. Related Data Home Medications ?Medication ?Instructions ?Recorded ?Confirmed ferrous sulfate 325 mg (65 mg 1 tab PO QDAY 08/26/21 0 08/26/21 iron) tablet (FeroSul) pantoprazole 40 mg tablet,delayed 1 tab PO QDAY 08/26/21 release Previous Rx's ?Medication ?Instructions ?Recorded famotidine 40 mg tablet 40 mg PO .bedtime #30 tabs 0 08/07/24 omeprazole 40 mg capsule,delayed 40 mg PO QDAY #30 cap s 08/07/24 release phenytoin sodium extended 100 mg 100 mg PO TID 30 days #90 caps 09/08/24 capsule (Dilantin Extended) Allergies Allergy/AdvReac Type Severity Reaction Status Date / Time No Known Allergies Allergy Verified 08/06/24 17:19 Review of Systems Review of Systems Systems Reviewed: All systems reviewed, normal except as documented Past Medical History Past Medical History NEUROLOGIC: Positive Seizures RESPIRATORY: Positive Asthma GASTROINTESTINAL: Positive Gastrointestinal Disorders, Gastrointestinal Bleed, Esophageal Varices and Ulcer PSYCHO/SOCIAL: Positive Anxiety OTHER HISTORY: Positive Blood Transfusions and Blood Transfusion Reaction Family History FAMILY HISTORY: Positive Family Gastrointestinal Problems Social History SMOKING STATUS: Never smoker SUBSTANCE USE: marijuana ED Exam General Limitations: Present no limitations General appearance: Present alert and in no apparent distress Head Head exam: Present atraumatic, normocephalic and normal inspection Eye Eye exam: Present normal appearance, PERRL and EOMI ENT ENT exam: Present normal exam, normal oropharynx and mucous membranes moist Neck Neck exam: Present normal inspection, full ROM and trachea midline Chest Chest inspection: Present normal inspection and symmetric chest wall rise Respiratory Respiratory exam: Present normal lung sounds bilaterally Cardiovascular Cardiovascular exam: Present regular rate, normal rhythm and normal heart sounds Abdominal Exam Abdominal exam: Present soft and normal bowel sounds Extremities Exam Extremities exam: Present normal inspection and full ROM Back Exam Back exam: Present normal inspection and full ROM Neurological Exam Neurological exam: Present alert, oriented X3 and CN II-XII intact Psychiatric Psychiatric exam: Present normal affect and normal mood Skin Skin exam: Present warm, dry, intact and normal color Course Quality Measures none Orders Category Date Time Status CT head/brain wo con Stat Exams 09/08/24 10:42 Completed Alcohol, Blood Medical Stat Lab 09/08/24 10:54 Completed CBC Stat Lab 09/08/24 10:54 Completed CMP [Comprehensive Metabolic Panel] Stat Lab 09/08/24 10:54 Completed Lipase Stat Lab 09/08/24 10:54 Completed Urinalysis Stat Lab 09/08/24 12:34 Completed Folic Acid Med 09/08/24 10:42 Discontinued 1 mg PO X1 ONE Ondansetron Odt [Zofran Odt] Med 09/08/24 10:42 Discontinued 4 mg PO X1 ONE Phenytoin Inj [Dilantin Inj] Med 09/08/24 13:52 Discontinued 1,000 mg IV X1 ONE Phenytoin Inj [Dilantin Inj] 1,000 mg Med 09/08/24 14:45 Discontinued Sodium Chloride 0.9% [Ns] 100 ml IV X1 Sodium Chloride 0.9% 1000 ml [Ns] 1,000 ml Med 09/08/24 10:42 Discontinued IV 999 mls/hr Vital Signs Vital signs: Vital Signs Temperature 98.8 F 09/08/24 10:22 Pulse Rate 111 H 09/08/24 10:22 Respiratory Rate 18 09/08/24 10:22 Blood Pressure 154/104 H 09/08/24 10:22 Pulse Oximetry (%) 95 09/08/24 10:22 Oxygen Delivery Method Room Air 09/08/24 10:22 Pulse ox is 95% on room air which is adequate. Seizure MDM Narrative MDM Narrative:: I, Bambi Granados, gina scribing for and in the presence of Dr. Evans. Assessment: Alcohol abuse, alcohol-induced seizure Plan: Dilantin 1 g IV once, then start phenytoin 100 mg PO TID for seizure prevention, alcohol cessation, I strongly advised patient to discontinue alcohol use, and outpatient PCP follow up. Patient data External records reviewed:: [facility] previous records (I reviewed ED visit on 07/11 for alcohol intoxication ) Clinical information provided by:: patient Social determinants that could affect healthcare access:: alcohol use Patient has the following chronic illnesses:: Alcoholism How is presenting disease/condition affected by chronic disease/condition?: exacerbated by Evaluation data The following diagnostics were reviewed and interpreted by me:: lab results and radiology exam(s) Lab and/or radiology exams considered but not ordered:: None Interpretation Summary: Ordering Physician: Alexandria Guerrero PA-C Date of Service: 09/08/24 Procedure(s): CT head/brain wo [facility] Accession Number(s): [id number] cc: Kell Alarcon PA-C; Mikel Paz MD; Alexandria Guerrero PA-C~ Examination: CT brain head without contrast. 2-D sagittal coronal reconstructions Date and time of exam:September 08, 2024 1048 hours INDICATIONS: Seizure this morning CTDI: vol (mGy):53.4 DLP: (mGycm):1077 Technique: Multiple CT axial sections of the brain have been obtained, 5 mm slice thickness. Contrast has not been administered. 2-D sagittal, coronal reconstructions have been obtained Low dose protocols were performed. One or more of the following dose reduction techniques were used; automated exposure control, adjustment of the mA and/or KV according to patient size, use of iterative reconstruction technique. Findings: No significant ventricular enlargement. Intra-axial or extra-axial hemorrhage density is not seen. No mass effect or midline shift Basal cisterns are not remarkable. Fourth ventricle is midline. Cranial vault intact. Significant ethmoid sinusitis Impression: Negative for acute hemorrhage, mass effect or midline shift Consider elective brain MRI follow-up, pre and postcontrast, seizure protocol Dictated By: Mikel Paz MD Signed By: <Electronically signed by Mikel Paz MD in OV> 09/08/24 1132 Medications / Prescriptions Medications or Prescriptions considered but not ordered:: None Medication administrations:: Medication Administration History Discontinued Medications Folic Acid (Folic Acid 1 Mg Tablet) 1 mg PO X1 ONE Stop: 09/08/24 10:43 Last Admin: 09/08/24 12:13 Dose: 1 mg Documented By: CG Sodium Chloride (Ns) 1,000 mls @ 999 mls/hr IV .Q1H1M ONE Stop: 09/08/24 11:42 Last Infusion: 09/08/24 12:55 Dose: Infused Documented By: Admin: 09/08/24 12:14 Dose: 999 mls/hr Documented By: CG Phenytoin Sodium 1,000 mg/ (Sodium Chloride) 120 mls @ 240 mls/hr IV X1 ONE Stop: 09/08/24 15:14 Last Infusion: 09/08/24 15:52 Dose: Infused Documented By: Admin: 09/08/24 15:23 Dose: 240 mls/hr Documented By: CG Ondansetron HCl (Ondansetron Odt 4 Mg Tabrap) 4 mg PO X1 ONE; Protocol Stop: 09/08/24 10:43 Last Admin: 09/08/24 12:13 Dose: 4 mg Documented By: CG Phenytoin Sodium (Phenytoin Inj 50 Mg/Ml Vial 5 Ml) 1,000 mg IV X1 ONE Stop: 09/08/24 13:53 Last Admin: 09/08/24 15:23 Dose: Not Given Documented By: CG Non-Admin Reason: Duplicate Medication on eMAR See above Consultations Consultation(s) initiated? (list below): No Diagnosis Seizure Differential Diagnosis: intractable seizure disorder, focal seizure, generalized seizure and other (alcohol withdrawal ) Most likely diagnosis given after review of the tests above:: Alcohol intoxication Seizure Epileptic seizure Admission Indicated Admission indicated?: not indicated Admission Request Was there a request for admission?: No Disposition Plan Disposition Plan: Discharge Discharge Attestation Discharge Attestation: The patient and all family members were given an opportunity to ask questions and understood the discharge instructions. Discharge instructions specifically effects, indications for sooner follow up or return to the emergency department, and the expected course of current diagnosis. Patient condition: Stable Discharge Plan Plan Patient Disposition: HOME (Self Care) Patient condition on transfer: Stable Prescriptions/Referrals Prescriptions/Med Rec: New phenytoin sodium extended [Dilantin Extended] 100 mg capsule 100 mg PO TID 30 Days Qty: 90 0RF No Action pantoprazole 40 mg tablet,delayed release (DR/EC) 1 tab PO QDAY Patient Comments: TAKE 1 TABLET BY MOUTH EVERY DAY ferrous sulfate [FeroSul] 325 mg (65 mg iron) tablet 1 tab PO QDAY Patient Comments: TAKE 1 TABLET BY MOUTH DAILY. JULY. TAKE WITH FOOD TO MINIMIZE ABDOMINAL DISCOMFORT famotidine 40 mg tablet 40 mg PO .bedtime Qty: 30 0RF omeprazole 40 mg capsule,delayed release(DR/EC) 40 mg PO QDAY Qty: 30 0RF Referrals: Kell Alarcon PA-C [Primary Care Provider] - In 1 week Problem List Clinical Impression: Alcohol intoxication, Seizure, Epileptic seizure Patient/Caregiver Discharge Instructions Education Materials: Diagnosing Epilepsy, Discharge Instructions for Epilepsy, ED Alcohol Intoxication Print Language: Kosovan Stand Alone Forms: Amanda Award Info., Patient Portal Info Letter
[2024-09-08] MEDS: PHENYTOIN INJ 1,000 MG in SODIUM CHLORIDE 0.9% 100 ML 240 MG IV (15:23)
--- NOTE | 2024-09-08 16:30 | PC.NURSE ---
This automatic typewriter inspector called and spoke with patient brother Isai to picker tender helper patient, Per Isai is busy at this time and will attempt to picker tender helper patient later on today.
--- NOTE | 2024-09-08 17:40 | PC.CC ---
DANILO Ortiz arranged transportation via [employer] for the pt to return home. Pt departed at 1730.
== END 2024-09-08 17:42 | disposition home or self-care (01) ==
PROVIDERS: Physician Assistant; Emergency Provider Emergency Medicine; PCP Physician Assistant
DX: G40.509 Epileptic seizures related to external causes, not intractable, without status epilepticus (principal); F10.129 Alcohol abuse with intoxication, unspecified; Y90.8 Blood alcohol level of 240 mg/100 ml or more
CPT/HCPCS: 36415; 70450; 80053; 80320; 81001; 83690; 85025; 96361; 96365; 99284; J1165; J7030; J7050; Q0162; A9270; G0480

== ENCOUNTER 2024-09-17 13:21 | Emergency (ER) | payer MEDICAID, SELFPAY ==
[2024-09-17 13:36] VITALS: BP 148/93; PULSE 103; RESP 20; TEMP 37; O2SAT 96
--- NOTE | 2024-09-17 14:02 | PD.EDRME ---
Rapid Medical Screening Exam RME Arrival date/time: 09/17/24 13:21 This is a 43-year-old male history of alcoholism presents to the emergency department with complaints of generalized weakness, shakiness. Does report he had 2 seizures last night. Also reports he drinks about 18 pack/day today only had 3 tall cans prior to ED arrival. I have greeted and performed a focused initial assessment of this patient. Initial appropriate labs ordered at this time. A comprehensive ED assessment and evaluation of the patient and analysis of all test and completion of medical decision making process will be conducted by additional ED provider. Chief Complaint: Seizure Time Seen by Provider: 09/17/24 13:29 Vital signs: Vital Signs Temperature 98.6 F 09/17/24 13:36 Pulse Rate 103 H 09/17/24 13:36 Respiratory Rate 20 09/17/24 13:36 Blood Pressure 148/93 H 09/17/24 13:36 Pulse Oximetry (%) 96 09/17/24 13:36 Oxygen Delivery Method Room Air 09/17/24 13:36
--- NOTE | 2024-09-17 14:05 | XR_ITS ---
Examination: CT brain head without contrast. 2-D sagittal coronal reconstructions Date and time of exam:September 17, 2024 1440 hours Comparison September 08, 2024 INDICATIONS: History seizures including September 09, 2019 5:00 AM today CTDI: vol (mGy):52.7 DLP: (mGycm):1130 Technique: Multiple CT axial sections of the brain have been obtained, 5 mm slice thickness. Contrast has not been administered. 2-D sagittal, coronal reconstructions have been obtained Low dose protocols were performed. One or more of the following dose reduction techniques were used; automated exposure control, adjustment of the mA and/or KV according to patient size, use of iterative reconstruction technique. Findings: No significant ventricular enlargement. Chronic ethmoid maxillary antral sinusitis Intra-axial or extra-axial hemorrhage density is not seen. No mass effect or midline shift Basal cisterns are not remarkable. Fourth ventricle is midline. Cranial vault intact. Impression: Negative for acute hemorrhage, mass effect or midline shift
[2024-09-17 14:20] LABS: Collection Type, Urine Clean Catch; Squamous Epithelial Cell,Urine 0 /hpf (0-5)
[2024-09-17 14:35] LABS: Bilirubin,Urine Negative (Negative); Blood,Urine Negative (Negative); Clarity,Urine Clear (Clear/Hazy); Color,Urine Colorless (Lt Yel-Yel); Glucose, Urine Negative (Negative); Ketones,Urine Negative (Negative); Leukocyte Esterase,Urine Negative (Negative); Nitrite,Urine Negative (Negative); PH,Urine 6.0 (5.0-7.0); Protein,Urine Negative (Neg - Trace); RBC,Urine < 1 /hpf (0-3); Specific Gravity,Urine 1.005 (1.001-1.035); Urobilinogen,Urine Negative mg/dL (0.0-1.0); WBC,Urine < 1 /hpf (0-5)
--- NOTE | 2024-09-17 14:35 | PD.EDSEIZ ---
ED Seizures RME/HPI General Chief Complaint: Seizure Stated Complaint: Seizure X 2 yesterday, ETOH Time Seen by Provider: 09/17/24 13:29 Arrival date/time: 09/17/24 13:21 This is a case of 43-year-old male presents emergency department with complaint of seizure. Patient has a history of alcohol abuse and states that he has had about 3 cans of beer today Patient was brought here by colleague after seizure-like activity at work. He is unsure of head trauma. Patient have history of EtOH and seizure patient also came with generalized weakness and shakiness patient has 2 seizure last night patient states that he drinks about 18 pack/day patient is currently complaining of headache but no dizziness no nausea no vomiting no blurring of vision Mode of arrival: ambulatory Limitations: no limitations RME / HPI RME / HPI Narrative: 09/17/24 13:21 This is a 43-year-old male history of alcoholism presents to the emergency department with complaints of generalized weakness, shakiness. Does report he had 2 seizures last night. Also reports he drinks about 18 pack/day today only had 3 tall cans prior to ED arrival. I have greeted and performed a focused initial assessment of this patient. Initial appropriate labs ordered at this time. A comprehensive ED assessment and evaluation of the patient and analysis of all test and completion of medical decision making process will be conducted by additional ED provider. Related Data Home Medications ?Medication ?Instructions ?Recorded ?Confirmed ferrous sulfate 325 mg (65 mg 1 tab PO QDAY 08/26/21 08/26/21 iron) tablet (FeroSul) pantoprazole 40 mg tablet,delayed 1 tab PO QDAY 08/26/21 08/26/21 release Previous Rx's ?Medication ?Instructions ?Recorded famotidine 40 mg tablet 40 mg PO .bedtime #30 tabs 08/07/24 omeprazole 40 mg capsule,delayed 40 mg PO QDAY #30 caps 08/07/24 release phenytoin sodium extended 100 mg 100 mg PO TID 30 days #90 caps 09/08/24 capsule (Dilantin Extended) chlordiazepoxide HCl 25 mg capsule 25 mg PO TID #22 caps 09/17/24 ondansetron 4 mg disintegrating 4 mg PO Q8H PRN nausea and 09/17/24 tablet vomiting #20 tabs Allergies Allergy/AdvReac Type Severity Reaction Status Date / Time No Known Allergies Allergy Verified 09/17/24 13:27 Review of Systems Review of Systems Systems Reviewed: All systems reviewed, normal except as documented Constitutional Constitutional: Reports system reviewed and no additional complaints, except as documented, Reports as per HPI, Denies anorexia, Denies body ache(s), Denies chills, Denies daytime sleepiness, Denies difficulty sleeping, Denies excessive sweating, Denies fatigue, Denies fever(s), Denies frequent falls, Reports headache(s), Denies increased appetite, Denies poor appetite, Denies lethargy, Denies malaise, Denies night sweats, Denies snoring, Denies stops breathing during sleep, Denies weakness, Denies weight gain and Denies weight loss Eyes Eyes: Reports system reviewed and no additional complaints, except as documented, Reports as per HPI, Denies blurry vision and Denies loss of vision ENT Ears, Nose, Mouth, and Throat: Denies abnormal hearing, Denies disequilibrium, Denies dizziness, Reports headache(s) and Denies vertigo Cardiovascular Cardiovascular: Reports system reviewed and no additional complaints, except as documented, Denies chest pain, Denies dyspnea and Denies syncope Respiratory Respiratory: Reports system reviewed and no additional complaints, except as documented, Reports as per HPI, Denies cough, Denies dyspnea and Denies snoring Gastrointestinal Gastrointestinal: Reports system reviewed and no additional complaints, except as documented, Reports as per HPI, Denies abdominal pain, Denies diarrhea, Denies nausea and Denies vomiting Genitourinary Genitourinary: Reports system reviewed and no additional complaints, except as documented and Reports as per HPI Musculoskeletal Musculoskeletal: Reports system reviewed and no additional complaints, except as documented, Reports as per HPI, Denies abnormal gait, Denies numbness and Denies tingling Neurologic Neurologic: Reports system reviewed and no additional complaints, except as documented, Reports as per HPI, Denies abnormal gait, Denies abnormal hearing, Denies abnormal movements, Denies abnormal speech, Denies behavioral changes, Denies burning sensations, Denies confusion, Reports convulsions, Denies disequilibrium, Denies dizziness, Denies localized weakness, Denies frequent falls, Reports headache(s), Denies lack of coordination, Denies loss of vision, Denies memory loss, Denies numbness, Denies other visual disturbances, Denies paresthesias, Denies radicular pain, Denies restless legs, Denies seizure-like activity, Denies sensory deficit, Denies syncope, Denies tingling, Denies tremor(s), Denies vertigo and Denies weakness Psychiatric Psychiatric: Denies behavioral changes, Denies confusion and Denies memory loss Endocrine Endocrine: Denies excessive sweating and Denies fatigue Past Medical History Past Medical History NEUROLOGIC: Positive Seizures CARDIAC: Negative Cardiac Disorders or Congestive Heart Failure RESPIRATORY: Positive Asthma; Negative Chronic Obstructive Pulmonary Disease (COPD) GASTROINTESTINAL: Positive Gastrointestinal Disorders, Gastrointestinal Bleed, Esophageal Varices and Ulcer GENITOURINARY: Negative Renal Disease ENDOCRINE: Negative Diabetes Mellitus Type 1 or Diabetes Mellitus Type 2 HEMATOLOGIC: Negative Sickle Cell Disease PSYCHO/SOCIAL: Positive Anxiety OTHER HISTORY: Positive Blood Transfusions and Blood Transfusion Reaction; Negative Anesthesia Reactions Family History FAMILY HISTORY: Positive Family Gastrointestinal Problems Social History SMOKING STATUS: Current every day smoker SUBSTANCE USE: marijuana ED Exam General Limitations: Present no limitations General appearance: Present alert, in no apparent distress and other (Patient is awake alert oriented not in distress not toxic looking well-hydrated well-nourished appears intoxicated with alcohol) Head Head exam: Present atraumatic Eye Eye exam: Present normal appearance, PERRL, EOMI and other (negative for pappieldema) ENT ENT exam: Present normal exam, normal oropharynx and mucous membranes moist Neck Neck exam: Present normal inspection, full ROM and trachea midline; Absent tenderness, meningismus or lymphadenopathy Chest Chest inspection: Present normal inspection and symmetric chest wall rise Respiratory Respiratory exam: Present normal lung sounds bilaterally; Absent respiratory distress, wheezes, stridor, accessory muscle use or prolonged expiratory phase Cardiovascular Cardiovascular exam: Present regular rate, normal rhythm and normal heart sounds; Absent bradycardia, tachycardia, irregular rhythm, systolic murmur or diastolic murmur Abdominal Exam Abdominal exam: Present soft and normal bowel sounds; Absent distention, tenderness, guarding, rebound, rigidity, diminished bowel sounds, hyperactive bowel sounds, hypoactive bowel sounds, organomegaly, obturator sign, Bustamante's sign, Rovsing's sign or tenderness at McBurney's Point Extremities Exam Extremities exam: Present normal inspection and full ROM Back Exam Back exam: Present normal inspection and full ROM Neurological Exam Neurological exam: Present alert, oriented X3, CN II-XII intact, normal gait, reflexes normal and other (Awake alert oriented x 4 no focal deficit GCS 15/15 steady gait motor or sensory reflex normal CN II through XII is normal memory intact no slurring speech no facial droop negative Babinski); Absent motor sensory deficit Expanded Neurological Exam Patient oriented to: Present person, place and time Speech: Present fluid speech (No slurring of speech) Cranial nerves: Normal: EOM function (II, III, IV, ), facial sensation (V), facial palsy (VII), gag reflex (IX), spinal accessory function (XI) and tongue deviation (XII) Cerebellar function: Normal: finger to nose and heel to dozier Cerebellar function: Present normal gait Motor strength - LUE: 5/5 Motor strength - RUE: 5/5 Motor strength - LLE: 5/5 Motor strength - RLE: 5/5 Upper motor neuron exam: Normal: rodríguez neglect, pronator drift, Babinski sign and sensory extinction Sensory exam upper extremity: Normal: light touch, pin prick, temperature and 2 point discrimination Sensory exam lower extremity: Normal: light touch, pin prick, temperature and 2 point discrimination DTR: 2+: biceps (L) and biceps (R) Psychiatric Psychiatric exam: Present normal affect and normal mood Skin Skin exam: Present warm, dry, intact and normal color Course Quality Measures none Orders Category Date Time Status EKG (ED ONLY) *Do not use* NOW Care 09/17/24 13:58 Completed Insert IV NOW Care 09/17/24 13:58 Active NPO STAT Care 09/17/24 13:[address] head/brain wo con Stat Exams 09/17/24 14:05 Completed EKG (ED Only) Stat Exams 09/17/24 13:58 Ordered XR chest 1V portable Stat Exams 09/17/24 16:58 Completed CBC Stat Lab 09/17/24 14:12 Completed Comprehensive Metabolic Panel Stat Lab 09/17/24 14:12 Completed LDH (Lactate Dehydrogenase) Stat Lab 09/17/24 14:12 Completed LDH (Lactate Dehydrogenase) Stat Lab 09/17/24 20:13 Completed Lactic Acid [Lactate (Lactic Acid)] Stat Lab 09/17/24 16:03 Completed Lactic Acid [Lactate (Lactic Acid)] Stat Lab 09/17/24 20:13 Results Lactic Acid, 3 HR Stat Lab 09/17/24 19:07 Completed Lipase Stat Lab 09/17/24 14:12 Completed LORNA [Alcohol, Blood Medical] Stat Lab 09/17/24 14:12 Completed Magnesium Stat Lab 09/17/24 14:12 Completed Phenytoin (Dilantin) Stat Lab 09/17/24 20:13 Completed Procalcitonin Stat Lab 09/17/24 16:03 Completed Prothrombin Time with INR Stat Lab 09/17/24 14:12 Completed Troponin I Stat Lab 09/17/24 14:12 Completed Urinalysis Stat Lab 09/17/24 14:16 Completed Folic Acid Inj Med 09/17/24 21:04 Discontinued 1 mg IVP X1 ONE LORazepam [Ativan Inj] Med 09/17/24 21:25 Discontinued 2 mg IVP X1 ONE Metoprolol Tartrate Inj [Lopressor Inj] Med 09/17/24 22:00 Active 5 mg IVP Q8HR Multivitamin Inj [Infuvite Inj] Med 09/17/24 21:04 Discontinued 10 ml IV X1 ONE Ondansetron Inj [Zofran Inj] Med 09/17/24 18:24 Discontinued 4 mg IVP X1 ONE Ondansetron Inj [Zofran Inj] Med 09/17/24 21:01 Discontinued 4 mg IVP X1 ONE Sodium Chloride 0.9% 1000 ml [Ns] 1,000 ml Med 09/17/24 16:56 Discontinued IV 500 mls/hr Sodium Chloride 0.9% 1000 ml [Ns] 1,000 ml Med 09/17/24 13:58 Discontinued IV 999 mls/hr Sodium Chloride 0.9% 1000 ml [Ns] 1,000 ml Med 09/17/24 21:04 Discontinued IV 999 mls/hr Thiamine Inj [Vitamin B-1 Inj] 100 mg Med 09/17/24 21:05 Discontinued Sodium Chloride 0.9% [Ns] 100 ml IV X1 cefTRIAXone [Rocephin] 2 gm Med 09/17/24 16:58 Discontinued SODIUM CHLORIDE 0.9% (Popper) [Ns 0.9% (P)] 50 ml IV X1 Vital Signs Vital signs: Vital Signs Temperature 98.6 F 09/17/24 13:36 Pulse Rate 103 H 09/17/24 13:36 Respiratory Rate 20 09/17/24 13:36 Blood Pressure 148/93 H 09/17/24 13:36 Pulse Oximetry (%) 96 09/17/24 13:36 Oxygen Delivery Method Room Air 09/17/24 13:36 Patient is afebrile patient is not tachycardic not tachypneic blood pressure is 148/93 not hypoxic 96% in room Seizure MDM Narrative MDM Narrative:: This is a case of 43-year-old male presents emergency department with complaint of seizure. Patient has a history of alcohol abuse and states that he has had about 3 cans of beer today Patient was brought here by colleague after seizure-like activity at work. He is unsure of head trauma. Patient have history of EtOH and seizure patient also came with generalized weakness and shakiness patient has 2 seizure last night patient states that he drinks about 18 pack/day patient is currently complaining of headache but no dizziness no nausea no vomiting no blurring of vision physical examination patient is awake alert oriented not in distress nontoxic looking mildly intoxicated with alcohol well-hydrated well-nourished lungs sound is clear no crackles no rales no retraction no stridor heart normal rate regular rhythm no murmur abdominal exam is benign nonsurgical no guarding no rebound no tenderness patient neurological exam is normal awake alert oriented x 4 no focal deficit GCS 15/15 memory intact no slurring of speech no facial droop motor or sensory reflex were normal negative Babinski blood test showed no leukocytosis no anemia platelet is normal no electrolyte imbalance patient kidney function is normal patient liver enzyme is elevated lactate dehydrogenase is 335 after bolus of normal saline and went down to 286 patient WAS is elevated AST ALT is also elevated patient will follow-up with GI specialist to monitor the liver function patient was advised to stop alcohol intake due to elevated liver enzymes and to repeat the level after a month patient lactic acid was elevated 3.03.2 and 3.5 this is discussed with Dr. Martinez this is possibly due to alcohol intoxication and was treated with a bolus of normal saline and banana bag patient initial blood pressure was 170/100 heart rate is tachycardic at 105 patient was given Lopressor 5 mg IV patient was reassessed heart rate went down to 89 and BP went down to 149/86 patient was also given Ativan 2 mg for alcohol intoxication at this point no signs and symptoms of sepsis patient elevated lactic acid due to dehydration patient condition markedly improved patient vital signs stable patient was advised to follow-up with PCP in 2 days for reevaluation and to be referred to neurologist for seizure and continue his phenytoin medication for seizure patient also was advised to follow-up with PCP to assess help for alcohol intoxication patient was prescribed tapering dose of Librium per Dr. Martinez for any worsening symptoms recurrence persistent return precaution in the ER was also advised patient shunt chest x-ray is normal CT scan is normal Patient was discharged with comfortable condition walking with stable gait. Patient verbalized no further complains explained diagnosis and answered patient question. Patient is comfortable with the proposed management plan including the need to follow up with his/her primary care physician and any specialist if applicable Discussed patient for any urgent condition or worsening sx, He/She needed to go to emergency room immediately or call 911. Patient acknowledge the responsibility to follow up as instructed and to monitor her/his symptoms. For any persistence of the symptoms for more than 3-5 days return precaution advised. Discussed the result of the test and was given printed discharge instruction Patient data External records reviewed:: [facility] previous records Clinical information provided by:: patient Social determinants that could affect healthcare access:: none Patient has the following chronic illnesses:: None How is presenting disease/condition affected by chronic disease/condition?: no chronic disease Evaluation data The following diagnostics were reviewed and interpreted by me:: lab results and radiology exam(s) Lab and/or radiology exams considered but not ordered:: Reviewed Interpretation Summary: Reviewed Medications / Prescriptions Medications or Prescriptions considered but not ordered:: Given Medication administrations:: Medication Administration History Metoprolol Tartrate (Metoprolol Tartrate Inj 1 Mg/Ml Amp 5 Ml) 5 mg IVP Q8HR VERENA Stop: 10/17/24 21:59 Last Admin: 09/17/24 21:31 Dose: 5 mg Documented By: EF Discontinued Medications Folic Acid (Folic Acid Inj 1 Mg/0.2 Ml) 1 mg IVP X1 ONE Stop: 09/17/24 21:05 Last Admin: 09/17/24 21:30 Dose: 1 mg Documented By: EF Sodium Chloride (Ns) 1,000 mls @ 999 mls/hr IV .Q1H1M ONE Stop: 09/17/24 14:58 Last Infusion: 09/17/24 19:32 Dose: Infused Documented By: Admin: 09/17/24 18:26 Dose: 999 mls/hr Documented By: MF Sodium Chloride (Ns) 1,000 mls @ 500 mls/hr IV .Q2H ONE Stop: 09/17/24 18:55 Last Infusion: 09/17/24 21:11 Dose: Infused Documented By: Admin: 09/17/24 19:08 Dose: 500 mls/hr Documented By: AC Ceftriaxone Sodium 2 gm/ (Sodium Chloride) 50 mls @ 100 mls/hr IV X1 ONE Stop: 09/17/24 17:27 Last Infusion: 09/17/24 19:36 Dose: Infused Documented By: Admin: 09/17/24 19:06 Dose: 100 mls/hr Documented By: AC Sodium Chloride (Ns) 1,000 mls @ 999 mls/hr IV .Q1H1M ONE Stop: 09/17/24 22:04 Last Admin: 09/17/24 21:31 Dose: 999 mls/hr Documented By: EF Thiamine HCl 100 mg/ Sodium (Chloride) 101 mls @ 202 mls/hr IV X1 ONE Stop: 09/17/24 21:34 Last Admin: 09/17/24 21:31 Dose: 202 mls/hr Documented By: EF Lorazepam (Lorazepam 2 Mg/Ml Vial) 2 mg IVP X1 ONE Stop: 09/17/24 21:26 Last Admin: 09/17/24 21:33 Dose: 2 mg Documented By: EF Multivitamins/Minerals (Multivitamin Inj 10 Ml Vial) 10 ml IV X1 ONE Stop: 09/17/24 21:05 Last Admin: 09/17/24 21:29 Dose: 10 ml Documented By: EF Ondansetron HCl (Ondansetron Inj 2 Mg/Ml Inj 2 Ml) 4 mg IVP X1 ONE; Protocol Stop: 09/17/24 18:25 Last Admin: 09/17/24 19:08 Dose: 4 mg Documented By: AC Ondansetron HCl (Ondansetron Inj 2 Mg/Ml Inj 2 Ml) 4 mg IVP X1 ONE; Protocol Stop: 09/17/24 21:02 Last Admin: 09/17/24 21:33 Dose: 4 mg Documented By: EF Given Consultations Consultation(s) initiated? (list below): Yes Consultation #1 (Physician, Specialty, Details): Dr. Martinez discussed patient condition history and physical examination relayed the results of blood test and imaging at the time of exam there is no signs and symptoms of sepsis lactic acid elevation is due to dehydration ordered banana bag Ativan for seizure Lopressor for elevated heart rate and blood pressure and discharge patient patient do not need any Dilantin patient is already taking the medication and discharged the patient Diagnosis Seizure Differential Diagnosis: focal seizure, generalized seizure, epileptic seizure and status epilepticus Most likely diagnosis given after review of the tests above:: Seizure due to alcohol intoxication Admission Indicated Admission indicated?: not indicated Explain why admission is indicated or not indicated:: Not indicated Admission Request Was there a request for admission?: No Admission Attestation Admission request attestation: Not indicated Disposition Plan Disposition Plan: Discharge Discharge Attestation Discharge Attestation: The patient and all family members were given an opportunity to ask questions and understood the discharge instructions. Discharge instructions specifically effects, indications for sooner follow up or return to the emergency department, and the expected course of current diagnosis. Patient condition: Stable Discharge Plan Plan Patient Disposition: HOME (Self Care) Patient condition on transfer: Stable Prescriptions/Referrals Prescriptions/Med Rec: New ondansetron 4 mg tablet,disintegrating 4 mg PO Q8H PRN (Reason: nausea and vomiting) Qty: 20 0RF chlordiazepoxide HCl 25 mg capsule 25 mg PO TID Qty: 22 0RF Rx Instructions: 1 tablet tid for 5 days,then 1 tablet bid for 3 days then 1 tablet once a day for 1 day then stop-taper dose No Action pantoprazole 40 mg tablet,delayed release (DR/EC) 1 tab PO QDAY Patient Comments: TAKE 1 TABLET BY MOUTH EVERY DAY ferrous sulfate [FeroSul] 325 mg (65 mg iron) tablet 1 tab PO QDAY Patient Comments: TAKE 1 TABLET BY MOUTH DAILY. JULY. TAKE WITH FOOD TO MINIMIZE ABDOMINAL DISCOMFORT phenytoin sodium extended [Dilantin Extended] 100 mg capsule 100 mg PO TID 30 Days Qty: 90 0RF famotidine 40 mg tablet 40 mg PO .bedtime Qty: 30 0RF omeprazole 40 mg capsule,delayed release(DR/EC) 40 mg PO QDAY Qty: 30 0RF Referrals: Telma Hernandez NP [Primary Care Provider] - In 1 week Problem List Clinical Impression: Seizure, Alcohol intoxication, Elevated liver enzymes Patient/Caregiver Discharge Instructions Education Materials: ED Alcohol Intoxication, ED Seizure, Recurrent (Adult) Additional Instructions: Follow-up with your primary care physician in 2 days for reevaluation and to be referred to neurologist for further evaluation and treatment of your seizure return to your primary care physician for alcohol intoxication recurrence persistent worsening symptoms or any emergent concern call 911 or go to the nearest emergency room take your medication as directed Pedialyte Gatorade for every bouts of vomiting keep hydrated no alcohol intake take follow-up with your primary care physician to be referred to space systems operations craftsman for further evaluation and treatment of elevated liver enzyme and to repeat the level next month continue your medication for seizure Print Language: Kiswahili Stand Alone Forms: Amanda Award Info., Patient Portal Info Letter PA/FOOD SERVICE AIDE Supervising Physician PA/LISSA Supervising Physician: Dr ramirez
[2024-09-17 14:39] LABS: Basophils # (Auto) 0.1 Thou/mm3 (0.0-0.2); Basophils % (Auto) 1 % (0-2.5); Eosinophils # (Auto) 0.1 Thou/mm3 (0.0-0.5); Eosinophils % (Auto) 2 % (0-10); Hematocrit 40.6 % (41.0-53.0); Hemoglobin 14.1 g/dL (13.5-16.0); Immature Granulocytes Auto 0.01 Thou/mm3 (0.00-0.00); Lymphocytes # (Auto) 0.7 Thou/mm3 (1.0-4.8); Lymphocytes % (Auto) 15 % (10-50); Mean Corpuscular HGB Conc 34.7 g/dl (31.0-37.0); Mean Corpuscular Hemoglobin 29.8 pg (25.0-35.0); Mean Corpuscular Volume 86 fL (80-100); Monocytes # (Auto) 0.4 Thou/mm3 (0.0-0.8); Monocytes % (Auto) 8 % (0-12); Neutrophils # (Auto) 3.6 Thou/mm3 (1.8-7.7); Neutrophils % (Auto) 74 % (37-80); Nucleated Red Blood Cell # 0.00 Thou/mm3 (0.00-0.00); Nucleated Red Blood Cell % 0 /100 WBC (0); RDW Standard Deviation 44.9 fL (35.1-43.9); Red Blood Count 4.73 Miln/mm3 (4.50-5.90); White Blood Count 4.8 Thou/mm3 (3.8-10.6)
[2024-09-17 14:51] LABS: INR 1.0 (0.9-1.3); Prothrombin Time 10.6 Seconds (9.0-12.2)
[2024-09-17 15:15] LABS: Alanine Aminotransferase 64 U/L (10-49); Albumin, Serum 4.8 gm/dL (3.5-5.0); Albumin/Globulin Ratio 1.5 (1.2-2.2); Alkaline Phosphatase 120 U/L (46-116); Anion Gap 12 (7-16); Aspartate Amino Transferase 175 U/L (0-34); BUN/Creatinine Ratio 6 Ratio (12-20); Bilirubin,Total 0.7 mg/dL (0.3-1.2); Blood Urea Nitrogen < 5 mg/dL (9-23); Calcium 9.3 mg/dL (8.3-10.6); Calcium (Corrected) 9.3 mg/dL (8.5-10.1); Carbon Dioxide 32.1 mMol/L (20.0-31.0); Chloride 96 mMol/L (98-107); Creatinine (Component) 0.8 mg/dL (0.6-1.3); Globulin 3.3 gm/dL (2.3-3.5); Glucose 120 mg/dL (74-106); LDH (Lactate Dehydrogenase) 335 U/L (120-246); Lipase 105 U/L (12-53); Magnesium 2.0 mg/dL (1.6-2.6); Osmolality,Calculated 277 (275-295); Potassium 4.3 mMol/L (3.4-5.1); Sodium 140 mMol/L (136-145); Total Protein 8.1 gm/dL (5.7-8.2); Troponin I < 0.020 ng/mL (0.0-0.045); eGFR > 60 See Note
[2024-09-17 15:22] LABS: Alcohol, Blood Medical 420.0 mg/dL (0-10.0)
[2024-09-17 15:30] LABS: Platelet Count 61 Thou/mm3 (140-440); Slide Review Platelets confirmed
[2024-09-17 16:10] LABS: Lactate (Lactic Acid) 3.0 mMol/L (0.4-2.0)
[2024-09-17 16:40] LABS: Procalcitonin 0.04 ng/ml (0.0-0.49)
--- NOTE | 2024-09-17 16:58 | XR_ITS ---
Examination: PA chest single view TECHNIQUE: Upright PA chest single view. Date and time: September 17, 2024, 1705 hours. Comparison August 25, 2021. INDICATIONS: Seizures beginning 2 days ago. FINDINGS: Normal heart size. No aspiration pneumonia. Old right-sided rib fractures. IMPRESSION: Negative for aspiration pneumonia.
[2024-09-17 17:28] VITALS: BP 157/98; PULSE 105; RESP 18; O2SAT 99
[2024-09-17] MEDS: SODIUM CHLORIDE 0.9% 1000 ML 1,000 ML 999 ML IV ×2 (18:26→21:31)
[2024-09-17] MEDS: cefTRIAXone 2 GM in SODIUM CHLORIDE 0.9% (Popper) 50 ML IV (19:06)
[2024-09-17 19:07] LABS: Reflex Lactate? Y
[2024-09-17] MEDS: ONDANSETRON INJ 2 MG/ML INJ 2 ML 4 MG IVP ×2 (19:08→21:33)
[2024-09-17] MEDS: SODIUM CHLORIDE 0.9% 1000 ML 1,000 ML 500 ML IV (19:08)
[2024-09-17 19:26] LABS: Lactic Acid, 3 HR 3.2 mMol/L (0.4-2.0)
[2024-09-17 20:21] LABS: Lactate (Lactic Acid) 3.5 mMol/L (0.4-2.0)
[2024-09-17 20:43] LABS: LDH (Lactate Dehydrogenase) 286 U/L (120-246)
[2024-09-17 21:18] VITALS: BP 170/91; PULSE 110; RESP 20; TEMP 37; O2SAT 94
[2024-09-17] MEDS: FOLIC ACID INJ 1 MG/0.2 ML IVP (21:30)
[2024-09-17 21:31] VITALS: BP 153/109; PULSE 121
[2024-09-17] MEDS: METOPROLOL TARTRATE INJ 1 MG/ML AMP 5 ML 5 MG IVP (21:31)
[2024-09-17] MEDS: THIAMINE INJ 100 MG in SODIUM CHLORIDE 0.9% 100 ML 202 MG IV (21:31)
[2024-09-17] MEDS: LORazepam 2 MG/ML VIAL IVP (21:33)
[2024-09-17 21:59] LABS: Phenytoin (Dilantin) < 2.0 mcg/mL
[2024-09-17 22:59] VITALS: BP 137/88; PULSE 114; RESP 16; O2SAT 98
[2024-09-17] MEDS: PHENYTOIN 100 MG CAPSR 1000 MG PO (23:13)
[2024-09-17 23:19] LABS: Reflex Lactate? Y
== END 2024-09-17 23:24 | disposition home or self-care (01) ==
PROVIDERS: Nurse Practitioner Family; Nurse Practitioner Primary Care; Emergency Provider Emergency Medicine; PCP Nurse Practitioner Women's Health
DX: R56.9 Unspecified convulsions (principal); F10.129 Alcohol abuse with intoxication, unspecified; R74.8 Abnormal levels of other serum enzymes; Y90.8 Blood alcohol level of 240 mg/100 ml or more
CPT/HCPCS: 36415; 70450; 71045; 80053; 80185; 80320; 81001; 83605; 83615; 83690; 83735; 84145; 84484; 85025; 85610; 93005; 96361; 96365; 96372; 96375; 96376; 99284; J0696; J2060; J2405; J3411; J3490; J7030; J7050; A9270; G0480

== ENCOUNTER 2024-10-17 23:32 | Emergency (ER) | payer MEDICAID, SELFPAY ==
[2024-10-17 23:40] VITALS: PULSE 85; O2SAT 95
[2024-10-17 23:50] VITALS: BP 148/97; PULSE 80; RESP 18; TEMP 36.9; O2SAT 97
--- NOTE | 2024-10-18 00:12 | EDNOTE_ITS ---
ED Alcohol RME/HPI General Chief Complaint: Alcohol Stated Complaint: ETOH Time Seen by Provider: 10/18/24 00:24 Arrival date/time: 10/17/24 23:32 RME / HPI RME / HPI narrative: Dr. Norman?s Main ED Evaluation: 44yo male presents by EMS after having been found outside a local store with multiple cans of beer nearby. Patient was suspected public intoxication and was referred for evaluation. Patient does recurrent falls throughout the week and a history of seizure disorder. Unknown LOC/syncopal episode. Also notes intermittent black tarry stool ~3-4 months. Related Data Home Medications ?Medication ?Instructions ?Recorded ?Confirmed ferrous sulfate 325 mg (65 mg 1 tab PO QDAY 08/26/21 0 08/26/21 iron) tablet (FeroSul) pantoprazole 40 mg tablet,delayed 1 tab PO QDAY 08/26/21 release Previous Rx's ?Medication ?Instructions ?Recorded famotidine 40 mg tablet 40 mg PO .bedtime #30 tabs 0 08/07/24 omeprazole 40 mg capsule,delayed 40 mg PO QDAY #30 cap s 08/07/24 release chlordiazepoxide HCl 25 mg capsule 25 mg PO TID #22 ca ps 09/17/24 ondansetron 4 mg disintegrating 4 mg PO Q8H PRN nausea and 09/17/24 tablet vomiting #20 tabs phenytoin sodium extended 100 mg 100 mg PO TID #90 cap s 09/17/24 capsule (Dilantin Extended) Allergies Allergy/AdvReac Type Severity Reaction Status Date / Time No Known Allergies Allergy Verified 10/17/24 23:40 Review of Systems Review of Systems Systems Reviewed: All systems reviewed, normal except as documented Past Medical History Past Medical History NEUROLOGIC: Positive Seizures and Epilepsy ([place] FROM ALCOHOL WITHDRAWL) CARDIAC: Positive Hypercholesterolemia and Hypertension; Negative Cardiac Disorders or Congestive Heart Failure RESPIRATORY: Positive Asthma; Negative Chronic Obstructive Pulmonary Disease (COPD) GASTROINTESTINAL: Positive Gastrointestinal Disorders, Gastrointestinal Bleed, Esophageal Varices and Ulcer GENITOURINARY: Negative Renal Disease ENDOCRINE: Negative Diabetes Mellitus Type 1 or Diabetes Mellitus Type 2 HEMATOLOGIC: Negative Sickle Cell Disease PSYCHO/SOCIAL: Positive Anxiety OTHER HISTORY: Positive Blood Transfusions and Blood Transfusion Reaction; Negative Anesthesia Reactions Family History FAMILY HISTORY: Positive Family Gastrointestinal Problems Social History SMOKING STATUS: Never smoker SUBSTANCE USE: marijuana ED Exam Narrative Physical exam: GENERAL APPEARANCE: awake, appears inebriated, able to follow simple commands and interact appropriately, well-developed, well-nourished, no acute distress VITALS: All vitals were reviewed and the pulse ox is 97% on room air, which is normal according to my interpretation. HEENT: Normocephalic, mild erythema to the left temporal region, no skull step- off; pupils equal, round, reactive to light; EOMI; mucous membranes pink, moist; oropharynx clear NECK: Supple LUNGS: CTABL; no wheezes, no rales, no rhonchi CHEST: ecchymosis to the right lower ribs without without crepitus or step-off HEART: Regular rate, regular rhythm; normal S1, S2; no murmurs ABDOMEN: non distended; normal BS; soft, no tenderness, no guarding, no rebound; no masses, no organomegaly, no hernia BACK: no CVA tenderness RECTAL: Guaiac negative. EXTREMITIES: atraumatic; no edema NEUROLOGIC: awake; alert and oriented x4; GCS 14/15, cranial nerves II-XII grossly intact; no focal sensory or motor deficits; no tremor PSYCHIATRIC: appropriate mood and affect SKIN: warm, dry, normal color; no rashes Course Quality Measures none Orders Category Date Time Status Bedside Blood Glucose NOW Care 10/18/24 00:24 Completed Inventory Control Associate NOW Care 10/18/24 00:24 Completed Continuous Pulse Oximetry NOW Care 10/18/24 00:24 Completed EKG (ED ONLY) *Do not use* NOW Care 10/18/24 00:25 Completed Insert IV NOW Care 10/18/24 00:25 Completed Occult Blood,Stool (Nursing) NOW Care 10/18/24 03:[address] head/brain wo con Stat Exams 10/18/24 00:26 Completed EKG (ED Only) Stat Exams 10/18/24 00:24 Draft XR chest 1V portable Stat Exams 10/18/24 06:39 Completed Alcohol, Blood Medical Stat Lab 10/18/24 00:40 Completed Ammonia Stat Lab 10/18/24 00:40 Completed CBC Stat Lab 10/18/24 00:40 Completed Comprehensive Metabolic Panel Stat Lab 10/18/24 00:40 Completed Drug Screen,Urine Stat Lab 10/18/24 00:35 Completed Magnesium Stat Lab 10/18/24 00:40 Completed Occult Blood, Stool (LAB) Stat Lab 10/18/24 03:40 Completed Partial Thromboplastin Time Stat Lab 10/18/24 00:40 Completed Prothrombin Time with INR Stat Lab 10/18/24 00:40 Completed Thyroid Stimulating Hormone Stat Lab 10/18/24 00:40 Completed Urinalysis Stat Lab 10/18/24 00:35 Completed Acetaminophen Tab [Tylenol Tab] Med 10/18/24 00:29 Discontinued 650 mg PO X1 ONE Dextrose 5%-Water [D5w] 1,000 ml Med 10/18/24 04:15 Discontinued IV 333 mls/hr Folic Acid Inj Med 10/18/24 00:27 Discontinued 1 mg IVP X1 ONE Magnesium Sulfate 2 GM Ivpb [Magnesium Sulfate Ivpb] Med 10/18/24 00:27 Discontinued 2 gm in 50 ml IV X1 Ondansetron Odt [Zofran Odt] Med 10/18/24 09:49 Discontinued 4 mg PO X1 ONE Sodium Chloride 0.9% 1000 ml [Ns] 1,000 ml Med 10/18/24 00:24 Discontinued IV 1,000 mls/hr Thiamine Inj [Vitamin B-1 Inj] Med 10/18/24 00:27 Discontinued 100 mg IVP X1 ONE Oxygen Delivery NOW RT 10/18/24 00:25 Completed Vital Signs Vital signs: Vital Signs Temperature 98.5 F 10/17/24 23:50 Pulse Rate 80 10/17/24 23:50 Respiratory Rate 18 10/17/24 23:50 Blood Pressure 148/97 H 10/17/24 23:50 Pulse Oximetry (%) 97 10/17/24 23:50 Oxygen Delivery Method Room Air 10/17/24 23:50 Discharge Plan Plan Patient Disposition: HOME (Self Care) Discharge Disposition comment: Stable Prescriptions/Referrals Prescriptions/Med Rec: No Action pantoprazole 40 mg tablet,delayed release (DR/EC) 1 tab PO QDAY Patient Comments: TAKE 1 TABLET BY MOUTH EVERY DAY ferrous sulfate [FeroSul] 325 mg (65 mg iron) tablet 1 tab PO QDAY Patient Comments: TAKE 1 TABLET BY MOUTH DAILY. MAY. TAKE WITH FOOD TO MINIMIZE ABDOMINAL DISCOMFORT ondansetron 4 mg tablet,disintegrating 4 mg PO Q8H PRN (Reason: nausea and vomiting) Qty: 20 0RF chlordiazepoxide HCl 25 mg capsule 25 mg PO TID Qty: 22 0RF Rx Instructions: 1 tablet tid for 5 days,then 1 tablet bid for 3 days then 1 tablet once a day for 1 day then stop-taper dose phenytoin sodium extended [Dilantin Extended] 100 mg capsule 100 mg PO TID Qty: 90 0RF famotidine 40 mg tablet 40 mg PO .bedtime Qty: 30 0RF omeprazole 40 mg capsule,delayed release(DR/EC) 40 mg PO QDAY Qty: 30 0RF Referrals: No Primary/Family,Physician [Primary Care Provider] - In 1 week Problem List Clinical Impression: Alcohol dependence with intoxication, Chest wall contusion, Alcoholism, Hypernatremia, Dehydration Patient/Caregiver Discharge Instructions Education Materials: Dehydration, ED Chest Wall Contusion, ED Alcohol Intoxication Additional Instructions: Today your alcohol intoxicated and you fell and hit your chest. There is no evidence of any significant injuries to your chest wall. There still could be a rib fracture that is not seen. As we advised please stop drinking. Resume a balanced diet and adequate hydration. You can take regular acetaminophen for pain. If you are getting worse with driving please return for reevaluation. Please do not restart drinking alcohol. See your doctor and get referred to specialist to help you with your addiction issues. Print Language: Yi Alcohol MDM Narrative MDM Narrative: Scribe Attestation: 10/18/24 - Polly Trevino am scribing for and in the presence of Dr. Norman. 44yo male presents by EMS after having been found outside a local store with multiple cans of beer nearby. Patient was suspected public intoxication and was referred for evaluation. Please see PE findings. Lab markers demonstrated chronic stable leukopenia, anemia, and thrombocytopenia. Coagulation profile wnl. Chemistries show hypernatremia and hyperchloremia, suggestive of underlying dehydration. TSH mildly elevatedf 5.3. UA unremarkble. Tox screen positive for benzodiazepines and marijuana. Hemoccult testing negative. Patient remained hemodynamically stable and observed for extended period of time, but appropri ately interactive. Will discharged to home and be counseled regarding combining benzodiazepines and alcohol. Dx: Acute alcohol intoxication with alcohol dependence, chest wall contusion Patient data External records reviewed:: [facility] previous records (Per chart review, patient was seen here on 09/17/24 for alcohol intoxication.) and EMS form Clinical information provided by:: patient Social determinants that could affect healthcare access:: alcohol use Patient has the following chronic illnesses:: seizures How is presenting disease/condition affected by chronic disease/condition?: uneffected by Evaluation data The following diagnostics were reviewed and interpreted by me:: lab results, radiology exam(s) and EKG tracing(s) Lab and/or radiology exams considered but not ordered:: none Interpretation Summary: EKG done at 0034, NSR, rate of 77, no ectopy, leftward axis, normal intervals, no ST segment changes, according to my interpretation. --------- Telerad Preliminary Report Draft Patient: JIMMY CLAYTON. Record#: [id number] Birthdate: 1980 Age/Sex: 44 / M Location: [facility] Attending Dr: Ordering Physician: Date of Service: Procedure(s): Accession Number(s): cc: ~ CT scan of the head without intravenous contrast (axial sections with sagittal and coronal reformats) October 18, 2024 0103 hours Clinical History: Head trauma. Comparison: Compared with the prior study dated August 07, 2024 Findings: No evidence of intracranial hemorrhage, mass effect or midline shift. The ventricles and CSF spaces are unremarkable. The calvarium is intact. There is mild mucosal thickening in bilateral maxillary and ethmoid sinuses. The mastoid air cells and the other visualized paranasal sinuses are clear. Impression: No evidence of intracranial hemorrhage, midline shift or calvarial fracture. Other findings as described above. Report Electronically Signed By: Walker Parr 10/18/2024 1:58:19 AM Medications / Prescriptions Medications or Prescriptions considered but not ordered:: none Medication administrations:: Medication Administration History Discontinued Medications Acetaminophen (Acetaminophen 325 Mg Tablet) 650 mg PO X1 ONE Stop: 10/18/24 00:30 Last Admin: 10/18/24 01:13 Dose: 650 mg Documented By: LUIS Folic Acid (Folic Acid Inj 1 Mg/0.2 Ml) 1 mg IVP X1 ONE Stop: 10/18/24 00:28 Last Admin: 10/18/24 01:11 Dose: 1 mg Documented By: LUIS Sodium Chloride (Ns) 1,000 mls @ 1,000 mls/hr IV .Q1H ONE Stop: 10/18/24 01:23 Last Infusion: 10/18/24 02:37 Dose: Infused Documented By: Admin: 10/18/24 01:11 Dose: 1,000 mls/hr Documented By: LUIS Magnesium Sulfate (Magnesium Sulfate Ivpb) 2 gm in 50 mls @ 25 mls/hr IV X1 ONE Stop: 10/18/24 02:26 Last Infusion: 10/18/24 03:47 Dose: Infused Documented By: Admin: 10/18/24 01:24 Dose: 25 mls/hr Documented By: LUIS Dextrose (D5w) 1,000 mls @ 333 mls/hr IV .Q3H1M VERENA Stop: 11/17/24 04:14 Last Infusion: 10/18/24 09:49 Dose: 0 mls/hr Documented By: Admin: 10/18/24 07:33 Dose: 333 mls/hr Documented By: Infusion: 10/18/24 07:20 Dose: Infused Documented By: Admin: 10/18/24 04:22 Dose: 333 mls/hr Documented By: ALCON Ondansetron HCl (Ondansetron Odt 4 Mg Tabrap) 4 mg PO X1 ONE; Protocol Stop: 10/18/24 09:50 Last Admin: 10/18/24 09:57 Dose: 4 mg Documented By: ORLIN Thiamine HCl (Thiamine Inj 100 Mg/Ml Vial 2 Ml) 100 mg IVP X1 ONE Stop: 10/18/24 00:28 Last Admin: 10/18/24 01:12 Dose: 100 mg Documented By: LUIS see above Consultations Consultation(s) initiated? (list below): No Diagnosis Differential diagnosis alcohol: alcohol intoxication and other (polysubstance abuse, GI bleed, dehydration, electrolyte abnormality) Most likely diagnosis given after review of the tests above:: see clinical impression below Admission Indicated Admission indicated?: not indicated Admission Request Was there a request for admission?: No Disposition Plan Disposition Plan: Discharge Discharge Attestation Discharge Attestation: The patient and all family members were given an opportunity to ask questions and understood the discharge instructions. Discharge instructions specifically effects, indications for sooner follow up or return to the emergency department, and the expected course of current diagnosis. Patient condition: Stable
--- NOTE | 2024-10-18 00:24 | EKG_ITS ---
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
--- NOTE | 2024-10-18 00:26 | XR_ITS ---
Examination: CT brain head without contrast. 2-D sagittal coronal reconstructions Date and time of exam:October 18, 2024, 0103 hours Comparison September 17, 2024 INDICATIONS: Patient fell today with injury to the head, head pain followed by altered mental status CTDI: vol (mGy):53.90 DLP: (mGycm):1101 Technique: Multiple CT axial sections of the brain have been obtained, 5 mm slice thickness. Contrast has not been administered. 2-D sagittal, coronal reconstructions have been obtained Low dose protocols were performed. One or more of the following dose reduction techniques were used; automated exposure control, adjustment of the mA and/or KV according to patient size, use of iterative reconstruction technique. Findings: No significant ventricular enlargement. Intra-axial or extra-axial hemorrhage density is not seen. No mass effect or midline shift Basal cisterns are not remarkable. Fourth ventricle is midline. Cranial vault intact. Chronic maxillary and ethmoid sinusitis Impression: Negative for acute hemorrhage, mass effect or midline shift
[2024-10-18 00:45] LABS: Collection Type, Urine Clean Catch; Squamous Epithelial Cell,Urine 0 /hpf (0-5)
[2024-10-18 00:49] LABS: Basophils # (Auto) 0.1 Thou/mm3 (0.0-0.2); Basophils % (Auto) 2 % (0-2.5); Eosinophils # (Auto) 0.3 Thou/mm3 (0.0-0.5); Eosinophils % (Auto) 9 % (0-10); Hematocrit 37.6 % (41.0-53.0); Hemoglobin 12.5 g/dL (13.5-16.0); Immature Granulocytes Auto 0.00 Thou/mm3 (0.00-0.00); Lymphocytes # (Auto) 1.1 Thou/mm3 (1.0-4.8); Lymphocytes % (Auto) 35 % (10-50); Mean Corpuscular HGB Conc 33.2 g/dl (31.0-37.0); Mean Corpuscular Hemoglobin 31.0 pg (25.0-35.0); Mean Corpuscular Volume 93 fL (80-100); Monocytes # (Auto) 0.4 Thou/mm3 (0.0-0.8); Monocytes % (Auto) 13 % (0-12); Neutrophils # (Auto) 1.2 Thou/mm3 (1.8-7.7); Neutrophils % (Auto) 40 % (37-80); Nucleated Red Blood Cell # 0.00 Thou/mm3 (0.00-0.00); Nucleated Red Blood Cell % 0 /100 WBC (0); Platelet Count 124 Thou/mm3 (140-440); RDW Standard Deviation 45.5 fL (35.1-43.9); Red Blood Count 4.03 Miln/mm3 (4.50-5.90); White Blood Count 3.1 Thou/mm3 (3.8-10.6)
[2024-10-18 00:50] VITALS: PULSE 78
[2024-10-18 00:51] VITALS: PULSE 76; RESP 17; RESP 96
[2024-10-18 00:53] LABS: Bilirubin,Urine Negative (Negative); Blood,Urine Negative (Negative); Clarity,Urine Clear (Clear/Hazy); Color,Urine Colorless (Lt Yel-Yel); Glucose, Urine Negative (Negative); Ketones,Urine Negative (Negative); Leukocyte Esterase,Urine Negative (Negative); Nitrite,Urine Negative (Negative); PH,Urine 6.0 (5.0-7.0); Protein,Urine Negative (Neg - Trace); RBC,Urine 1 /hpf (0-3); Specific Gravity,Urine 1.005 (1.001-1.035); Urobilinogen,Urine Negative mg/dL (0.0-1.0); WBC,Urine < 1 /hpf (0-5)
[2024-10-18 00:56] LABS: Amphetamine/Methamp Scrn,U Negative (Negative); Barbiturate Screen,Urine Negative (Negative); Benzodiazepines Screen,Urine Positive (Negative); Benzoylecgonine Screen, Ur Negative (Negative); Fentanyl Screen,Urine Negative (Negative); Opiate Screen,Urine Negative (Negative); THC Screen,Urine Positive (Negative)
--- NOTE | 2024-10-18 01:01 | PC.NURSE ---
PATIENT TAKEN TO CT.
[2024-10-18 01:03] LABS: INR 1.0 (0.9-1.3); Partial Thromboplastin Time 25.1 Seconds (22.0-36.0); Prothrombin Time 11.4 Seconds (9.0-12.2)
[2024-10-18 01:06] LABS: Ammonia 21 uMol/L (11-32)
[2024-10-18] MEDS: SODIUM CHLORIDE 0.9% 1000 ML 1,000 ML IV (01:11)
[2024-10-18] MEDS: FOLIC ACID INJ 1 MG/0.2 ML IVP (01:11)
[2024-10-18] MEDS: THIAMINE INJ 100 MG/ML VIAL 2 ML IVP (01:12)
[2024-10-18] MEDS: ACETAMINOPHEN 325 MG TABLET 650 MG PO (01:13)
[2024-10-18 01:17] LABS: Alanine Aminotransferase 50 U/L (10-49); Albumin, Serum 4.1 gm/dL (3.5-5.0); Albumin/Globulin Ratio 1.6 (1.2-2.2); Alkaline Phosphatase 86 U/L (46-116); Anion Gap 10 (7-16); Aspartate Amino Transferase 124 U/L (0-34); BUN/Creatinine Ratio 6 Ratio (12-20); Bilirubin,Total 0.2 mg/dL (0.3-1.2); Blood Urea Nitrogen < 5 mg/dL (9-23); Calcium 8.3 mg/dL (8.3-10.6); Calcium (Corrected) 8.3 mg/dL (8.5-10.1); Carbon Dioxide 25.5 mMol/L (20.0-31.0); Chloride 112 mMol/L (98-107); Creatinine (Component) 0.8 mg/dL (0.6-1.3); Globulin 2.6 gm/dL (2.3-3.5); Glucose 101 mg/dL (74-106); Magnesium 1.9 mg/dL (1.6-2.6); Osmolality,Calculated 289 (275-295); Potassium 3.7 mMol/L (3.4-5.1); Sodium 147 mMol/L (136-145); Thyroid Stimulating Hormone 5.34 uIU/mL (0.55-4.78); Total Protein 6.7 gm/dL (5.7-8.2); eGFR > 60 See Note
[2024-10-18 01:18] LABS: Alcohol, Blood Medical 403.6 mg/dL (0-10.0)
[2024-10-18] MEDS: Magnesium Sulfate 2 GM Ivpb 2 GM/50 ML BAG IV (01:24)
--- NOTE | 2024-10-18 01:59 | PRELIM_ITS ---
CT scan of the head without intravenous contrast (axial sections with sagittal and coronal reformats) October 18, 2024 0103 hours Clinical History: Head trauma. Comparison: Compared with the prior study dated August 07, 2024 Findings: No evidence of intracranial hemorrhage, mass effect or midline shift. The ventricles and CSF spaces are unremarkable. The calvarium is intact. There is mild mucosal thickening in bilateral maxillary and ethmoid sinuses. The mastoid air cells and the other visualized paranasal sinuses are clear. Impression: No evidence of intracranial hemorrhage, midline shift or calvarial fracture. Other findings as described above. Report Electronically Signed By: Walker Parr 10/18/2024 1:58:19 AM [EST]
[2024-10-18 03:55] LABS: OBS Card Lot # 0124; OBS Developer Lot # 23003; OBS Performed By FLORS3; OBS QC OK? Yes; Occult Blood, Stool Negative (Negative)
[2024-10-18 04:19] VITALS: BP 119/78; PULSE 62; RESP 12; TEMP 37; O2SAT 99
[2024-10-18] MEDS: DEXTROSE 5%-WATER 1,000 ML 333 ML IV ×2 (04:22→07:33)
[2024-10-18 06:04] VITALS: BP 113/77; PULSE 66; RESP 18; TEMP 36.7; O2SAT 100
--- NOTE | 2024-10-18 06:39 | XR_ITS ---
Examination: AP chest single view Findings one AP portable upright chest single view Date and time on October 18, 2024 0717 hours Comparison September 17, 2024 INDICATIONS: Chest pain and shortness of breath beginning today. FINDINGS: Normal heart size. The lungs are clear. The osseous structures are demineralized IMPRESSION: No active disease
[2024-10-18 07:25] VITALS: BP 107/80; PULSE 74; RESP 100; RESP 16; TEMP 36.4; O2SAT 100
--- NOTE | 2024-10-18 07:48 | PC.NURSE ---
DR. WADSWORTH MADE AWARE OF PT'S CIWA SCORE AT THIS TIME IS 5. PER DR. NULL, PT OK TO BE DISCHARGED AT THIS TIME.
--- NOTE | 2024-10-18 08:04 | PD.EDADDENDU ---
Emergency Room Addendum <Jo Ritchie - Last Filed: 10/18/24 10:42> Addendum Narrative: 0600: Care assumed from Dr. Porras, the previous shift emergency physician. Past medical, surgical, social and family history reviewed. Vitals and home medications reviewed. I will assume the care of the patient at this time, waiting for patient to metabolize to freedom for discharge. Please refer to the emergency department record for history and examination from initial visit.? Physical exam by me shows patient under no acute distress at this time. Patient was sleeping earlier this morning at 0940 hrs. he is alert awake he is ambulatory his vital signs are good he is not shaky he reports drinking 12 to 18 cans of beer a day for the last 30+ years. He is says he wants to stop but not quite certain if he will. 0833: Normal gait. He was advised to abstain from alcohol and take a multivitamin and eat a balanced diet follow-up with his doctors and return if getting worse. He is also complaining of some vague nausea at the time of discharge but no vomiting. Denies any pain. Noted his blood alcohol was quite high when he first arrived at 0.4 but family were taken he is advised not to drive. Review of his lab studies show sodium is slightly elevated consistent with some dehydration. He was hydrated with 1.5 L of fluid. He drank water has no nausea or vomiting. <Adrián Rivera MD - Last Filed: 10/18/24 10:44> Addendum Narrative: 0600: Care assumed from Dr. Porras, the previous shift emergency physician. Past medical, surgical, social and family history reviewed. Vitals and home medications reviewed. I will assume the care of the patient at this time, waiting for patient to metabolize to freedom for discharge. Please refer to the emergency department record for history and examination from initial visit.? Physical exam by me shows patient under no acute distress at this time. Patient was sleeping earlier this morning at 0940 hrs. he is alert awake he is ambulatory his vital signs are good he is not shaky he reports drinking 12 to 18 cans of beer a day for the last 30+ years. He is says he wants to stop but not quite certain if he will. He was advised to abstain from alcohol and take a multivitamin and eat a balanced diet follow-up with his doctors and return if getting worse.. He is also complaining of some vague nausea at the time of discharge but no vomiting. Denies any pain. Noted his blood alcohol was quite high when he first arrived at 0.4 but family were taken he is advised not to drive. Review of his lab studies show sodium is slightly elevated consistent with some dehydration. He was hydrated with 1.5 L of fluid. He drank water has no nausea or vomiting.
--- NOTE | 2024-10-18 08:33 | PC.NURSE ---
PT ABLE TO WALK INDEPENDENTLY WITH STEADY GAIT AT THIS TIME. PT DENIED DIZZINESS DURING AMBULATION. DR. NELSON MADE AWARE. PT GIVEN JELL-O AND WATER.
--- NOTE | 2024-10-18 09:35 | PC.NURSE ---
PT DRANK A CUP OF WATER AT THIS TIME; PT DENIES ANY N/V.
[2024-10-18 09:50] VITALS: BP 131/93; PULSE 78; RESP 12; TEMP 36.5; O2SAT 100
[2024-10-18] MEDS: ONDANSETRON ODT 4 MG TABRAP PO (09:57)
== END 2024-10-18 10:13 | disposition home or self-care (01) ==
PROVIDERS: Emergency Medicine; Emergency Provider Emergency Medicine
DX: F10.229 Alcohol dependence with intoxication, unspecified (principal); E87.0 Hyperosmolality and hypernatremia; E86.0 Dehydration; S20.219A Contusion of unspecified front wall of thorax, initial encounter; R07.9 Chest pain, unspecified; R06.02 Shortness of breath; I10 Essential (primary) hypertension; E78.00 Pure hypercholesterolemia, unspecified; G40.909 Epilepsy, unspecified, not intractable, without status epilepticus; R29.6 Repeated falls; Y90.8 Blood alcohol level of 240 mg/100 ml or more; W19.XXXA Unspecified fall, initial encounter
CPT/HCPCS: 36415; 70450; 71045; 80053; 80307; 80320; 81001; 82140; 82270; 83735; 84443; 85025; 85610; 85730; 93005; 96365; 96366; 96375; 99283; J3411; J3475; J3490; J7030; J7070; Q0162; A9270; G0480

== ENCOUNTER 2024-10-22 18:20 | Emergency (ER) | payer MEDICAID, SELFPAY ==
--- NOTE | 2024-10-22 19:26 | PD.EDADULT ---
ED General RME/HPI General Chief complaint: Alcohol Stated complaint: INTOXICATED Time Seen by Provider: 10/22/24 19:24 Arrival date/time: 10/22/24 18:20 CC: Acute alcohol intoxication HPI on a beer drinking binge for the last 5+ days with no food. EMS report stable vital signs patient has slurred speech stating he has a history of epilepsy but does not take medication for it. Denies chest pain shortness of breath or difficulty breathing is complaining of hunger. Related Data Home Medications ?Medication ?Instructions ?Recorded ?Confirmed ferrous sulfate 325 mg (65 mg 1 tab PO QDAY 08/26/21 08/26/21 iron) tablet (FeroSul) pantoprazole 40 mg tablet,delayed 1 tab PO QDAY 08/26/21 08/26/21 release Previous Rx's ?Medication ?Instructions ?Recorded famotidine 40 mg tablet 40 mg PO .bedtime #30 tabs 08/07/24 omeprazole 40 mg capsule,delayed 40 mg PO QDAY #30 caps 08/07/24 release chlordiazepoxide HCl 25 mg capsule 25 mg PO TID #22 caps 09/17/24 ondansetron 4 mg disintegrating 4 mg PO Q8H PRN nausea and 09/17/24 tablet vomiting #20 tabs phenytoin sodium extended 100 mg 100 mg PO TID #90 caps 09/17/24 capsule (Dilantin Extended) Allergies Allergy/AdvReac Type Severity Reaction Status Date / Time No Known Allergies Allergy Verified 10/17/24 23:40 Review of Systems Review of Systems Narrative Review of Systems: GEN: No fever, no chills, no weight loss EYES: No discharge, no visual changes, no pain HEENT: No ear pain, no congestion, no sore throat PULM: No shortness of breath, no cough, no congestion CV: No chest pain, no dyspnea on exertion, no palpitations GI: No nausea, no vomiting, no diarrhea, no pain, no constipation : No frequency, no urgency, no dysuria MUSC/SKEL: No joint pain, no back pain SKIN: No rash PSYCH: No hallucinations, no depression HEME/LYMPH: No easy bleeding or bruising tendencies NEURO: No weakness, no headache Past Medical History Past Medical History NEUROLOGIC: Positive Seizures and Epilepsy ([place] FROM ALCOHOL WITHDRAWL) CARDIAC: Positive Hypercholesterolemia and Hypertension; Negative Cardiac Disorders or Congestive Heart Failure RESPIRATORY: Positive Asthma; Negative Chronic Obstructive Pulmonary Disease (COPD) GASTROINTESTINAL: Positive Gastrointestinal Disorders, Gastrointestinal Bleed, Esophageal Varices and Ulcer GENITOURINARY: Negative Renal Disease ENDOCRINE: Negative Diabetes Mellitus Type 1 or Diabetes Mellitus Type 2 HEMATOLOGIC: Negative Sickle Cell Disease PSYCHO/SOCIAL: Positive Anxiety OTHER HISTORY: Positive Blood Transfusions and Blood Transfusion Reaction; Negative Anesthesia Reactions Family History FAMILY HISTORY: Positive Family Gastrointestinal Problems Social History SMOKING STATUS: Never smoker SUBSTANCE USE: marijuana ED Exam Narrative Physical exam: [General: Not in any acute distress Head normocephalic HEENT: Within acceptable limits Neck is supple nontender Chest equal chest rise nontender to palpation Respiratory: Clear to auscultation no wheezes crackles or rubs CV: Rate rhythm is regular no murmurs rubs or clicks Abdomen is soft nontender no masses positive bowel sounds all 4 quadrants Back: No CVA tenderness no spinous process tenderness from cervical spine thoracic and lumbar spine Skin: Intact no petechiae rash induration ulceration or crepitus Extremities: Moving all extremity against resistance cap refill less than 2 seconds neurosensory intact Neuro: Awake alert oriented x2, person place, Glascow coma 15 no focal deficits] Course Course Course Narrative: Reexamination of this patient at 1043, the patient is awake alert has tolerated food, is ambulated without complication alcohol level is greater than 350, however the patient is a chronic alcoholic this time we will discharge him home to follow-up with primary care provider and family. Quality Measures none Orders Category Date Time Status CT cervical spine wo con Stat Exams 10/22/24 20:[address] head/brain wo con Stat Exams 10/22/24 20:54 Taken Alcohol, Blood Medical Stat Lab 10/22/24 19:50 Completed B-Type Natriuretic Peptide Stat Lab 10/22/24 19:50 Completed CBC Stat Lab 10/22/24 19:50 Completed Comprehensive Metabolic Panel Stat Lab 10/22/24 19:50 Completed Drug Screen,Urine Stat Lab 10/22/24 20:08 Completed LDH (Lactate Dehydrogenase) Stat Lab 10/22/24 19:50 Completed Magnesium Stat Lab 10/22/24 19:50 Completed Partial Thromboplastin Time Stat Lab 10/22/24 19:50 Completed Prothrombin Time with INR Stat Lab 10/22/24 19:50 Completed Troponin I Stat Lab 10/22/24 19:50 Completed Urinalysis Stat Lab 10/22/24 20:08 Completed Folic Acid Inj Med 10/22/24 19:24 Discontinued 1 mg IVP X1 ONE Sodium Chloride 0.9% 1000 ml [Ns] 1,000 ml Med 10/22/24 19:26 Discontinued IV 999 mls/hr Sodium Chloride 0.9% 1000 ml [Ns] 1,000 ml Med 10/22/24 22:36 Ordered IV 999 mls/hr Thiamine Inj [Vitamin B-1 Inj] Med 10/22/24 19:24 Discontinued 100 mg IVP X1 ONE Vital Signs Vital signs: Vital Signs Temperature 98.4 F 10/22/24 19:31 Pulse Rate 86 10/22/24 19:31 Respiratory Rate 16 10/22/24 19:31 Blood Pressure 131/84 H 10/22/24 19:31 Pulse Oximetry (%) 94 L 10/22/24 19:31 Oxygen Delivery Method Room Air 10/22/24 19:31 Discharge Plan Plan Patient Disposition: HOME (Self Care) Patient condition on transfer: Stable Prescriptions/Referrals Prescriptions/Med Rec: No Action pantoprazole 40 mg tablet,delayed release (DR/EC) 1 tab PO QDAY Patient Comments: TAKE 1 TABLET BY MOUTH EVERY DAY ferrous sulfate [FeroSul] 325 mg (65 mg iron) tablet 1 tab PO QDAY Patient Comments: TAKE 1 TABLET BY MOUTH DAILY. JULY. TAKE WITH FOOD TO MINIMIZE ABDOMINAL DISCOMFORT ondansetron 4 mg tablet,disintegrating 4 mg PO Q8H PRN (Reason: nausea and vomiting) Qty: 20 0RF chlordiazepoxide HCl 25 mg capsule 25 mg PO TID Qty: 22 0RF Rx Instructions: 1 tablet tid for 5 days,then 1 tablet bid for 3 days then 1 tablet once a day for 1 day then stop-taper dose phenytoin sodium extended [Dilantin Extended] 100 mg capsule 100 mg PO TID Qty: 90 0RF famotidine 40 mg tablet 40 mg PO .bedtime Qty: 30 0RF omeprazole 40 mg capsule,delayed release(DR/EC) 40 mg PO QDAY Qty: 30 0RF Referrals: Jesús Kang MD [Physician] - In 1 week No Primary/Family,Physician [Primary Care Provider] - In 1 week Problem List Clinical Impression: Alcohol intoxication Patient/Caregiver Discharge Instructions Education Materials: ED Alcohol Intoxication Additional Instructions: Stop drinking alcohol use the medications that were giving him last time they were here. Follow-up with your primary care provider Print Language: Kinyarwanda Stand Alone Forms: Amanda Award Info., Patient Portal Info Letter MOLLY/LISSA Supervising Physician MOLLY/LISSA Supervising Physician: Kalpesh Starkey ENP MDM Clinical Information Provided by patient and EMS Medical Records Reviewed [facility] and EMS Meds/Rx Considered, not Ordered None Labs/Rad/Tests considered, not Ordered None Chronic Illness/Social Conditions which may negatively complicate care or outcome(s)-explain: ETOH/drugs/substance abuse Medication Administration(s) Medication Administration History Sodium Chloride (Ns) 1,000 mls @ 999 mls/hr IV .Q1H1M ONE Stop: 10/22/24 23:36 Discontinued Medications Folic Acid (Folic Acid Inj 1 Mg/0.2 Ml) 1 mg IVP X1 ONE Stop: 10/22/24 19:25 Last Admin: 10/22/24 20:13 Dose: 1 mg Documented By: RODRIGUEZ Sodium Chloride (Ns) 1,000 mls @ 999 mls/hr IV .Q1H1M ONE Stop: 10/22/24 20:26 Last Infusion: 10/22/24 21:27 Dose: Infused Documented By: Admin: 10/22/24 20:16 Dose: 999 mls/hr Documented By: RODRIGUEZ Thiamine HCl (Thiamine Inj 100 Mg/Ml Vial 2 Ml) 100 mg IVP X1 ONE Stop: 10/22/24 19:25 Last Admin: 10/22/24 20:13 Dose: 100 mg Documented By: RODRIGUEZ
[2024-10-22 19:31] VITALS: BP 131/84; PULSE 86; RESP 16; TEMP 36.9; O2SAT 94
[2024-10-22 19:33] VITALS: PULSE 90; O2SAT 97
[2024-10-22] MEDS: THIAMINE INJ 100 MG/ML VIAL 2 ML IVP (20:13)
[2024-10-22] MEDS: FOLIC ACID INJ 1 MG/0.2 ML IVP (20:13)
[2024-10-22 20:16] LABS: Collection Type, Urine Clean Catch; Squamous Epithelial Cell,Urine 0 /hpf (0-5)
[2024-10-22] MEDS: SODIUM CHLORIDE 0.9% 1000 ML 1,000 ML 999 ML IV (20:16)
[2024-10-22 20:22] LABS: Bilirubin,Urine Negative (Negative); Blood,Urine Negative (Negative); Clarity,Urine Clear (Clear/Hazy); Color,Urine Colorless (Lt Yel-Yel); Glucose, Urine Negative (Negative); Ketones,Urine Negative (Negative); Leukocyte Esterase,Urine Negative (Negative); Nitrite,Urine Negative (Negative); PH,Urine 6.5 (5.0-7.0); Protein,Urine Negative (Neg - Trace); RBC,Urine < 1 /hpf (0-3); Specific Gravity,Urine 1.006 (1.001-1.035); Urobilinogen,Urine Negative mg/dL (0.0-1.0); WBC,Urine < 1 /hpf (0-5)
--- NOTE | 2024-10-22 20:54 | XR_ITS ---
Examination: CT cervical spine without contrast 2-D sagittal reconstructions 2-D coronal reconstructions 3-D reconstructions. Exam date and time:October 22, 2024 10:16 PM CTDI:vol (mGy) 16.2 DLP: (mGycm) 356 Technique: Multiple 2 mm axial sections of the cervical spine have been obtained. The coronal and sagittal reconstructions have been obtained. 3-D reconstructions have been obtained. Low dose protocols were performed. One or more of the following dose reduction techniques were used; automated exposure control, adjustment of the mA and/or KV according to patient size, use of iterative reconstruction technique. Findings: Axial sections demonstrate intact base of the skull. C1 exhibit satisfactory relationship to the odontoid. No acute cervical vertebral body fracture seen. Alignment posterior spinous processes satisfactory. Impression: No acute cervical fracture.
--- NOTE | 2024-10-22 20:54 | XR_ITS ---
Examination: CT brain head without contrast. 2-D sagittal coronal reconstructions Date and time of exam:October 22, 2024 10:16 PM INDICATIONS: Ground-level fall today with images the head, head pain CTDI: vol (mGy):53 DLP: (mGycm):1084 Technique: Multiple CT axial sections of the brain have been obtained, 5 mm slice thickness. Contrast has not been administered. 2-D sagittal, coronal reconstructions have been obtained Low dose protocols were performed. One or more of the following dose reduction techniques were used; automated exposure control, adjustment of the mA and/or KV according to patient size, use of iterative reconstruction technique. Findings: No significant ventricular enlargement. Intra-axial or extra-axial hemorrhage density is not seen. No mass effect or midline shift Basal cisterns are not remarkable. Fourth ventricle is midline. Cranial vault intact. Impression: Negative for acute hemorrhage, mass effect or midline shift
[2024-10-22 21:13] LABS: Amphetamine/Methamp Scrn,U Negative (Negative); Barbiturate Screen,Urine Negative (Negative); Benzodiazepines Screen,Urine Positive (Negative); Benzoylecgonine Screen, Ur Negative (Negative); Fentanyl Screen,Urine Negative (Negative); Opiate Screen,Urine Negative (Negative); THC Screen,Urine Positive (Negative)
[2024-10-22 21:51] LABS: Basophils # (Auto) 0.1 Thou/mm3 (0.0-0.2); Basophils % (Auto) 2 % (0-2.5); Eosinophils # (Auto) 0.2 Thou/mm3 (0.0-0.5); Eosinophils % (Auto) 6 % (0-10); Hematocrit 34.5 % (41.0-53.0); Hemoglobin 12.1 g/dL (13.5-16.0); Immature Granulocytes Auto 0.01 Thou/mm3 (0.00-0.00); Lymphocytes # (Auto) 1.1 Thou/mm3 (1.0-4.8); Lymphocytes % (Auto) 29 % (10-50); Mean Corpuscular HGB Conc 35.1 g/dl (31.0-37.0); Mean Corpuscular Hemoglobin 31.0 pg (25.0-35.0); Mean Corpuscular Volume 89 fL (80-100); Monocytes # (Auto) 0.6 Thou/mm3 (0.0-0.8); Monocytes % (Auto) 14 % (0-12); Neutrophils # (Auto) 1.8 Thou/mm3 (1.8-7.7); Neutrophils % (Auto) 48 % (37-80); Nucleated Red Blood Cell # 0.00 Thou/mm3 (0.00-0.00); Nucleated Red Blood Cell % 0 /100 WBC (0); Platelet Count 137 Thou/mm3 (140-440); RDW Standard Deviation 41.7 fL (35.1-43.9); Red Blood Count 3.90 Miln/mm3 (4.50-5.90); White Blood Count 3.8 Thou/mm3 (3.8-10.6)
[2024-10-22 22:04] LABS: INR 1.1 (0.9-1.3); Partial Thromboplastin Time 26.2 Seconds (22.0-36.0); Prothrombin Time 11.8 Seconds (9.0-12.2)
[2024-10-22 22:15] LABS: B-Type Natriuretic Peptide < 20 pg/mL (0-100)
[2024-10-22 22:26] LABS: Alanine Aminotransferase 51 U/L (10-49); Albumin, Serum 4.2 gm/dL (3.5-5.0); Albumin/Globulin Ratio 1.7 (1.2-2.2); Alcohol, Blood Medical 363.7 mg/dL (0-10.0); Alkaline Phosphatase 102 U/L (46-116); Anion Gap 11 (7-16); Aspartate Amino Transferase 102 U/L (0-34); BUN/Creatinine Ratio 7 Ratio (12-20); Bilirubin,Total 0.8 mg/dL (0.3-1.2); Blood Urea Nitrogen < 5 mg/dL (9-23); Calcium 8.9 mg/dL (8.3-10.6); Calcium (Corrected) 8.9 mg/dL (8.5-10.1); Carbon Dioxide 21.8 mMol/L (20.0-31.0); Chloride 97 mMol/L (98-107); Creatinine (Component) 0.7 mg/dL (0.6-1.3); Globulin 2.5 gm/dL (2.3-3.5); Glucose 100 mg/dL (74-106); LDH (Lactate Dehydrogenase) 228 U/L (120-246); Magnesium 1.6 mg/dL (1.6-2.6); Osmolality,Calculated 258 (275-295); Potassium 3.4 mMol/L (3.4-5.1); Sodium 130 mMol/L (136-145); Total Protein 6.7 gm/dL (5.7-8.2); Troponin I < 0.002 ng/mL (0.0-0.045); eGFR > 60 See Note
[2024-10-22 22:43] VITALS: BP 123/77; PULSE 83; RESP 17; TEMP 36.7; O2SAT 94
[2024-10-22 22:49] VITALS: BP 115/75; PULSE 88; RESP 19; TEMP 37.1; O2SAT 94
== END 2024-10-22 22:51 | disposition home or self-care (01) ==
PROVIDERS: Registered Nurse General Practice; Emergency Provider Emergency Medicine
DX: F10.129 Alcohol abuse with intoxication, unspecified (principal); Y90.9 Presence of alcohol in blood, level not specified; G40.909 Epilepsy, unspecified, not intractable, without status epilepticus; R51.9 Headache, unspecified
CPT/HCPCS: 36415; 70450; 72125; 80053; 80307; 80320; 81001; 83615; 83735; 83880; 84484; 85025; 85610; 85730; 99284; J3411; J3490; J7030; G0480